=== PATIENT | female | born 1950 | race Caucasian/White ===

== ENCOUNTER → 2018-06-04 09:10 | Outpatient (CLI) | payer MEDICARE, SELFPAY ==
[2018-06-04 09:36] LABS: Add Manual Diff / Slide Review NO; Basophils Percent Auto 0.9 % (0-2); Eosinophils Percent Auto 5.4 % (2-4); Hematocrit 39.4 % (36-46); Hemoglobin 13.4 g/dL (12.0-16.0); Lymphocytes Percent Auto 21.7 % (25-40); Mean Corpuscular Hemoglobin 33.3 PG (26-34); Mean Corpuscular Volume 97.9 fL (80-100); Monocytes Percent Auto 4.4 % (3-14); Neutrophils Absolute Auto 3400 /uL (3000-5900); Neutrophils Percent Auto 67.6 % (50-75); Platelet Count 225 X10^3/uL (150-400); Red Blood Cell Count 4.02 X10^6/uL (4.0-5.2); Red Cell Distribution Width 14.7 % (11.6-14.8); White Blood Cell Count 5.1 X10^3/uL (4.5-11.0)
[2018-06-04 09:54] LABS: Erythrocyte Sedimentation Rate 8 MM/HR (0-20)
[2018-06-04 10:10] LABS: Alanine Aminotransferase 31 IU/L (9-52); Albumin 4.1 g/dL (3.5-5.0); Albumin Globulin Ratio 1.6 (1.0-2.8); Alkaline Phosphatase 109 U/L (38-126); Aspartate Aminotransferase 27 IU/L (14-36); Bilirubin Total 0.4 mg/dL (0.2-1.3); Blood Urea Nitrogen 14 mg/dL (7-17); C-Reactive Protein Quant 0.9 mg/dL (<1.0); Calcium 9.4 mg/dL (8.4-10.2); Carbon Dioxide 32 mmol/L (22-32); Chloride 103 mmol/L (98-107); Estimated Glomerular Filt Rate > 60.0 mL/min (>60); Globulin 2.6 g/dL (1.7-4.1); Glucose 93 mg/dL (80-110); HEMOLYSIS < 15 (0-50); Potassium 4.3 mmol/L (3.4-5.1); Sodium 141 mmol/L (137-145); Total Protein 6.7 g/dL (6.3-8.2)
== END ==
PROVIDERS: PCP Internal Medicine; Visit Provider Specialist/Technologist Athletic Trainer
DX: L40.50 Arthropathic psoriasis, unspecified (principal)
CPT/HCPCS: 36415; 80053; 85025; 85651; 86140

== ENCOUNTER → 2018-09-03 12:43 | Outpatient (CLI) | payer MEDICARE, SELFPAY ==
[2018-09-03 14:15] LABS: Add Manual Diff / Slide Review NO; Basophils Percent Auto 0.8 % (0-2); Eosinophils Percent Auto 2.5 % (2-4); Hematocrit 38.1 % (36-46); Hemoglobin 12.7 g/dL (12.0-16.0); Lymphocytes Percent Auto 17.6 % (25-40); Mean Corpuscular HGB Conc 33.3 % (30-36); Mean Corpuscular Hemoglobin 31.9 PG (26-34); Mean Corpuscular Volume 95.8 fL (80-100); Monocytes Percent Auto 5.8 % (3-14); Neutrophils Absolute Auto 4100 /uL (3000-5900); Neutrophils Percent Auto 73.3 % (50-75); Platelet Count 215 X10^3/uL (150-400); Red Blood Cell Count 3.98 X10^6/uL (4.0-5.2); Red Cell Distribution Width 14.2 % (11.6-14.8); White Blood Cell Count 5.6 X10^3/uL (4.5-11.0)
[2018-09-03 14:42] LABS: Alanine Aminotransferase 35 IU/L (9-52); Albumin 3.9 g/dL (3.5-5.0); Albumin Globulin Ratio 1.6 (1.0-2.8); Alkaline Phosphatase 107 U/L (38-126); Aspartate Aminotransferase 31 IU/L (14-36); BUN Creatinine Ratio 18.6 (6-22); Bilirubin Total 0.3 mg/dL (0.2-1.3); Blood Urea Nitrogen 13 mg/dL (7-17); C-Reactive Protein Quant 1.8 mg/dL (<1.0); Calcium 8.8 mg/dL (8.4-10.2); Carbon Dioxide 28 mmol/L (22-32); Chloride 104 mmol/L (98-107); Estimated Glomerular Filt Rate > 60.0 mL/min (>60); Globulin 2.5 g/dL (1.7-4.1); Glucose 116 mg/dL (80-110); HEMOLYSIS < 15 (0-50); Potassium 3.8 mmol/L (3.4-5.1); Sodium 143 mmol/L (137-145); Total Protein 6.4 g/dL (6.3-8.2)
[2018-09-03 14:54] LABS: Erythrocyte Sedimentation Rate 13 MM/HR (0-20)
== END ==
PROVIDERS: Family Provider Internal Medicine; PCP Internal Medicine; Visit Provider Specialist/Technologist Athletic Trainer
DX: L40.50 Arthropathic psoriasis, unspecified (principal)
CPT/HCPCS: 36415; 80053; 85025; 85651; 86140

== ENCOUNTER → 2018-09-27 08:21 | Outpatient (CLI) | payer MEDICARE, SELFPAY ==
--- NOTE | 2018-09-27 08:22 | DI.RAD.S_ITS ---
PROCEDURE: FL BARIUM SWALLOW INDICATIONS: Dysphagia COMPARISON: [facility], , BARIUM SWALLOW, 08/29/2008, 11:50. FINDINGS: Function: There is normal esophageal peristalsis superiorly but within the middle and distal thirds of the esophagus episodic tertiary contractions were observed. There was both spontaneous and elicited gastroesophageal reflux, moderate in overall severity. A fixed stricture was not seen. Morphologically there is a moderate-sized sliding hiatal hernia above the diaphragmatic hiatus through the course of this examination. This results in a relatively fixed narrowing below the hiatal hernia, short in length but with normal gastric folds crossing through the area of narrowing. Therefore, by appearance, this is most likely extrinsic in origin rather than evidence of a short segmental fundoplication. Morphology: Air-contrast images demonstrate normal mucosal morphology. Single contrast views show no esophageal strictures, extrinsic mass effects, or diverticula. Limited images of the stomach demonstrate normal appearance. IMPRESSION: There is a moderate degree of both spontaneous and elicited gastroesophageal reflux associated with extension of this reflux to the level of the medial clavicular heads at times. The reflux is associated with episodic tertiary contractions within the middle and distal thirds of the esophagus. A fixed stricture is not present. Note is made of a short segment of the gastric cardia below the dominant portion of sliding hiatal hernia that is relatively narrow in its caliber but associated with normal gastric folds crossing through that area. This appearance as discussed above is considered a narrowing due to the diaphragmatic hiatus rather than evidence of an intact fundoplication. Dictated by: August Gage M.D. on 09/27/2018 at 10:40 Approved by: August Gage M.D. on 09/27/2018 at 10:45
== END ==
PROVIDERS: Family Provider Internal Medicine; PCP Internal Medicine; Visit Provider Surgery
DX: K21.9 Gastro-esophageal reflux disease without esophagitis (principal); R13.10 Dysphagia, unspecified; K44.9 Diaphragmatic hernia without obstruction or gangrene
CPT/HCPCS: 74220

== ENCOUNTER → 2018-11-19 08:47 | Outpatient (CLI) | payer MEDICARE, SELFPAY | PROVIDERS: Family Provider Internal Medicine; PCP Internal Medicine; Visit Provider Internal Medicine Critical Care Medicine | DX: R05 Cough (principal) | CPT/HCPCS: 87116 ==

== ENCOUNTER → 2018-11-20 09:00 | Outpatient (CLI) | payer MEDICARE, SELFPAY | PROVIDERS: Family Provider Internal Medicine; PCP Internal Medicine; Visit Provider Internal Medicine Critical Care Medicine | DX: R05 Cough (principal) | CPT/HCPCS: 87116 ==

== ENCOUNTER → 2018-11-21 10:06 | Outpatient (CLI) | payer MEDICARE, SELFPAY | PROVIDERS: Family Provider Internal Medicine; PCP Internal Medicine; Visit Provider Internal Medicine Critical Care Medicine | DX: R05 Cough (principal) | CPT/HCPCS: 87116 ==

== ENCOUNTER 2018-11-27 13:32 | Day surgery (SDC) | payer MEDICARE, SELFPAY ==
[2018-11-27] VITALS (7 sets, daily range): BP systolic 123–150; BP diastolic 61–86; PULSE 57–69; RESP 14–19; TEMP 36.6–36.8; O2SAT 93–97; BMI 28.8
--- NOTE | 2018-11-27 | PATH_ITS ---
[facility] Accession Number: [id number] . 01 Material submitted: . PART A: DUODENUM BIOPSY PART B: ANTRUM BIOPSY PART C: GE JUNCTION BIOPSY . 02 Diagnosis: A. Duodenum, Biopsy: Duodenal mucosa with no diagnostic abnormality. Negative for active inflammation, features of sprue, dysplasia and malignancy. . B. Stomach, Antrum, Biopsy: Antral mucosa with no diagnostic abnormality. No evidence of Helicobacter on H/E stain. Negative for intestinal metaplasia. Negative for dysplasia and malignancy. . C. Gastroesophgeal Junction, Biopsy: Squamocolumnar junctional mucosa with no diagnsotic abnormality. Negative for intestinal metaplasia. Negative for dysplasia and malignancy. [facility]/11/29/2018 . 02 Electronically signed: . Mari Velazquez MD, Pathologist NPI- [id number] . 01 Gross description: . Part A: DUODENUM BIOPSY: Received in formalin is 1 fragment(s) of interiano, soft tissue measuring 0.3 x 0.3 x 0.3 cm submitted entirely in 1 cassette(s) Part B: ANTRUM BIOPSY: Received in formalin is 1 fragment(s) of interiano, soft tissue measuring 0.4 x 0.2 x 0.2 cm submitted entirely in 1 cassette(s) Part C: GE JUNCTION BIOPSY: Received in formalin are multiple fragment(s) of interiano, soft tissue measuring 0.5 x 0.5 x 0.2 cm in aggregate submitted entirely in 1 cassette(s) /CKI /CKI . 02 Pathologist provided ICD-10: R10.9 . 02 CPT . 520674, 215013, 409733 Performed at: [address], [place], [place] [id number] MD Moncho Alba MD Phone: [phone] Performed at: 02 [facility] [address] [place] [address] [place], [place] [id number] MD Mari Velazquez MD Phone: [phone]
[2018-11-27] MEDS: SODIUM CHLORIDE 0.9% 1,000 ML 150 ML IV (14:30)
[2018-11-27] MEDS: TETRACAINE/BENZOCAINE/BUTAMBEN (CETACAINE) BOTTLE 1 SPRAY TOP (15:38)
[2018-11-27] MEDS: LIDOCAINE 4% SOLN 50 ML 20 ML TOP (15:39)
[2018-11-27] MEDS: fentaNYL 250 MCG/5 ML INJ IV (15:41)
[2018-11-27] MEDS: MIDAZOLAM 5 MG/5 ML VIAL IV (15:41)
--- NOTE | 2018-11-27 15:54 | PM.OP.1 ---
Operative Date/Time/Diagnoses Date of procedure: 11/27/18 Time of procedure: 15:54 Pre-op diagnosis: Gastroesophageal reflux disease Personal history of Sim fundoplication Post-op diagnosis: same Procedure & Clinicians Procedure: Esophagogastroduodenoscopy with cold forceps biopsies Same procedure as scheduled: Yes Indications: Gastroesophageal reflux disease and voice changes History of Sim fundoplication Surgeon: Chrystal Sterling Click Yes if Unassisted: Yes Anesthesia Type: Sedation (Versed 8 mg; fentanyl 250 mcg) Operative Notes Findings: 1. Normal appearing duodenum 2. Antral gastritis with a 1 cm healing ulcer in the pyloric channel. No stigmata of recent bleeding 3. Normal appearing fundus 4. Hiatus at 40 cm from the incisors 5. Mucosal junction at 35 cm from the incisors 6. The appearance of the esophagus is notable for a lack of twisting that is usually observed internally after a Sim fundoplication. 7. Erythema of the true vocal cords is observed. The cords are seen to move appropriately and equally. Specimen(s): other (All cold forceps biopsies- 1. Duodenum, 2. Antrum, 3. GE junction) Estimated Blood Loss (mL): 2 Procedure in detail: After obtaining informed consent, the patient was brought to the GI suite and placed in the left lateral decubitus position on the examination table. After placement of appropriate monitors, the patient was given incremental doses of Versed and Fentanyl until an appropriate level of sedation was achieved. A time out was held per SCOAP protocol. A bite block was gently placed between the patient's teeth. The endoscope was lubricated and then passed into the patient's posterior oropharynx. The esophagus was cannulated under direct vision and the scope was passed to the second portion of the duodenum without difficulty. The scope was then withdrawn with careful examination of all areas of the upper GI tract and mucosa. In the stomach, the instrument was retroflexed and the GE junction examined. The scope was straightened and the procedure continued with examination of the remainder of the upper GI tract. Findings are noted above. Air was aspirated from the stomach and the endoscope gently removed from the esophagus. The patient was allowed to awaken from sedation without difficulty and taken to the post-anesthesia care unit in good condition. Total sedation time was 16 min Complications: none Condition: stable Disposition: PACU Plan for aftercare: 1. Discharge to home 2. Await pathology results and further recommendations.
--- NOTE | 2018-12-19 13:10 | PM.HP.1 ---
History of Present Illness Date Patient Seen: 11/27/18 Time Patient Seen: 13:10 Chief complaint: egd [id number] Narrative: Very pleasant 68-year-old lady who is known to me from prior visit in September. She is here today for an EGD. She has a history of having had reflux and reflux surgery in the form a Sim fundoplication many years ago. Additionally she deals with chronic cough and is having some difficulty swallowing recently. She is not having any unexplained weight loss. Patient History Medical History GERD (gastroesophageal reflux disease) (Chronic ~2002) Other and unspecified hyperlipidemia (Chronic) Essential hypertension (Chronic 01/24/18) Asthma (Chronic ~2009) Anxiety (Chronic ~1989) Depression (Chronic ~1979) Post traumatic stress disorder (PTSD) (Chronic ~2011) Hay fever (Chronic ~1979) Chronic cough (Chronic ~1984) Osteoarthritis (Chronic ~2012) H/O migraine (Chronic ~1979) Psoriatic arthritis (Chronic) Allergic rhinitis, unspecified (Chronic) Fibroids (Chronic ~2000) Foot pain (Chronic ~2002) Herpes (Chronic ~1979) Knee pain (Chronic) Recurrent sinusitis (Chronic ~1979) Shoulder pain (Chronic ~1999) Anemia (Resolved ~2000) Chicken pox (Resolved) De Quervain's disease (radial styloid tenosynovitis) (Resolved) Fracture of ulna, right, closed (Resolved) GI bleeding (Resolved) Headache (Resolved ~1969) Heavy menstrual period (Resolved) Measles (Resolved) Mumps (Resolved) Pneumonia (Resolved ~2011) Surgical History Anesthesia (Resolved) History of Sim fundoplication (Resolved ~2003) Long's neuroma (Resolved ~2012) Status post arthroscopy (Resolved ~2009) Status post functional endoscopic sinus surgery (Resolved) Status post rotator cuff repair (Resolved ~05/2000) Surgical procedure planned (Resolved ~03/2000) Family History Brother Age: 70 Heart disease Mental health problem Alcoholic Brother Age: 66 Diabetes mellitus Heart disease Hypertension Father Heart disease Mother Diabetes mellitus Hypertension Mental health problem Grandmother Mental health problem Bipolar 1 disorder Alcoholic Sister Fibromyalgia Grandfather No problems noted. Grandmother No problems noted. Sister No problems noted. Sister Fibromyalgia Social History marital status: number of children: 2 household members: spouse lives independently: Yes caregiver/support person: No housing: house pets and animals: Yes education level: college travel history: other Smoking Status: Never smoker Tobacco: How many years used: 0 second hand exposure: Yes (Early in life) alcohol intake: current substance use type: tranquilizers, sedatives, opiates and other Family & Social History Family History Brother Age: 70 Heart disease Mental health problem Alcoholic Brother Age: 66 Diabetes mellitus Heart disease Hypertension Father Heart disease Mother Diabetes mellitus Hypertension Mental health problem Grandmother Mental health problem Bipolar 1 disorder Alcoholic Sister Fibromyalgia Grandfather No problems noted. Grandmother No problems noted. Sister No problems noted. Sister Fibromyalgia Social History: household members spouse lives independently Yes caregiver/support person No Tobacco & Substance use: Smoking Status Never smoker alcohol intake current Meds Home Medications Medication Instructions Recorded Confirmed Type loratadine [Claritin] See Rx Instructions .ROUTE 03/22/17 12/11/18 History .COMPLEX #0 halobetasol propionate 1 elizabet TP DAILY #0 11/29/17 12/11/18 History bupropion HCl 75 mg PO BID #180 tab 01/24/18 12/11/18 Rx ascorbic acid (vitamin C) 500 mg See Rx Instructions .ROUTE 04/26/18 12/11/18 History capsule .COMPLEX cap gabapentin 300 mg capsule 300 mg PO BEDTIME #0 cap 04/26/18 12/11/18 History hydroxyzine HCl 25 mg tablet 25 mg PO ONCE tab 04/26/18 12/11/18 History methotrexate sodium 2.5 mg tablet 20 mg PO QWEEK tab 04/26/18 12/11/18 History multivitamin tablet 1 tab PO DAILY 04/26/18 12/11/18 History rizatriptan 10 mg tablet 10 mg PO ONCE PRN #12 tab 04/26/18 12/11/18 Rx alprazolam 0.25 mg tablet 0.25 mg PO ONCE PRN #30 tab 09/04/18 12/11/18 Rx meloxicam 15 mg tablet 15 mg PO DAILY 09/04/18 12/11/18 History sucralfate 1 gram tablet 1 gram PO QACHS #120 tab 09/04/18 12/11/18 Rx omeprazole 40 mg capsule,delayed 40 mg PO BID #180 ecc 10/19/18 12/11/18 Rx release diltiazem CD 240 mg 240 mg PO QDAY #30 cap 11/14/18 12/11/18 Rx capsule,extended release 24 hr ogbgxgd-jhicdjgben-QRV-caffeine 30 1 cap PO Q6HP PRN #60 cap 11/19/18 12/11/18 Rx mg-50 mg-325 mg-40 mg capsule albuterol sulfate [Ventolin HFA] See Rx Instructions .ROUTE 11/27/18 12/11/18 History .COMPLEX PRN levocetirizine [Xyzal] 5 mg PO DAILY 11/27/18 12/11/18 History ranitidine 150 mg tablet 150 mg PO BID 30 Days #60 tab 12/03/18 12/11/18 History amoxicillin 500 mg-potassium 1 tab PO BID #28 tab 12/11/18 Rx clavulanate 125 mg tablet Allergies Allergy/AdvReac Type Severity Reaction Status Date / Time shellfish derived Allergy Intermediate EATING Verified 12/11/18 11:11 LARGE AMOUNTS, ITCHY Sulfa (Sulfonamide Allergy Mild HIVES/FEVER Verified 12/11/18 11:11 Antibiotics) trimethoprim Allergy Mild ANYTHING Verified 12/11/18 11:11 WITH SULFA UNSURE WITH THE INGREDIENTS sulfamethoxazole Allergy Verified 12/11/18 11:11 [From ] zolpidem [ZOLPIDEM] AdvReac Intermediate sleep Verified 12/11/18 11:11 walking Review of Systems Review of Systems All systems reviewed & are unremarkable except as noted in HPI and below Exam Vital Signs (past 8 hours): Oxygen Delivery Method Room Air Oxygen Flow Rate 3 Narrative Exam Narrative: Pleasant lady in no obvious distress HEENT: Normocephalic and atraumatic, pupils equal round reactive to light accommodation with anicteric sclera Lungs: Clear bilaterally Heart: Regular rate and rhythm without murmur rub or gallop Abdomen: Soft, nontender, active bowel sounds Extremities: Warm and well perfused without edema Assessment & Plan Assessment Narrative: Pleasant lady here for an EGD for surveillance distal esophagitis in the presence of longstanding gastroesophageal reflux disease and a chronic cough. We discussed the risks and benefits of the procedure and the patient expressed a desire to complete it today.
== END 2018-11-27 16:49 | disposition home or self-care (01) ==
PROVIDERS: Family Provider Internal Medicine; PCP Internal Medicine; Visit Provider Surgery
PROC: 0DJ08ZZ Inspection of Upper Intestinal Tract, Via Natural or Artificial Opening Endoscopic (ICD-10-PCS; CPT 43235; principal; 2018-11-27 15:00)
DX: K29.70 Gastritis, unspecified, without bleeding (principal); K21.9 Gastro-esophageal reflux disease without esophagitis; Z98.890 Other specified postprocedural states; E78.5 Hyperlipidemia, unspecified; I10 Essential (primary) hypertension; J45.909 Unspecified asthma, uncomplicated; F41.9 Anxiety disorder, unspecified
CPT/HCPCS: 43239; 88305; 99152; J2250; J3010

== ENCOUNTER → 2018-12-03 09:05 | Outpatient (CLI) | payer MEDICARE, SELFPAY ==
[2018-12-03 10:39] LABS: Add Manual Diff / Slide Review NO; Basophils Absolute Auto 0 /uL (0-100); Basophils Percent Auto 1.1 % (0-2); Eosinophils Absolute Auto 300 /uL (0-450); Eosinophils Percent Auto 6.9 % (2-4); Hematocrit 41.6 % (36-46); Hemoglobin 13.8 g/dL (12.0-16.0); Lymphocytes Absolute Auto 1000 /uL (1100-4500); Lymphocytes Percent Auto 24.8 % (25-40); Mean Corpuscular HGB Conc 33.1 % (30-36); Mean Corpuscular Hemoglobin 31.5 PG (26-34); Mean Corpuscular Volume 95.3 fL (80-100); Monocytes Absolute Auto 300 /uL (0-900); Monocytes Percent Auto 6.3 % (3-14); Neutrophils Absolute Auto 2400 /uL (1500-7000); Neutrophils Percent Auto 60.9 % (50-75); Platelet Count 293 X10^3/uL (150-400); Red Blood Cell Count 4.37 X10^6/uL (4.0-5.2); Red Cell Distribution Width 15.2 % (11.6-14.8)
[2018-12-03 11:15] LABS: Alanine Aminotransferase 36 IU/L (9-52); Albumin 4.2 g/dL (3.5-5.0); Albumin Globulin Ratio 1.7 (1.0-2.8); Alkaline Phosphatase 107 U/L (38-126); Aspartate Aminotransferase 33 IU/L (14-36); BUN Creatinine Ratio 18.8 (6-22); Bilirubin Total 0.3 mg/dL (0.2-1.3); Blood Urea Nitrogen 15 mg/dL (7-17); C-Reactive Protein Quant 1.2 mg/dL (<1.0); Calcium 9.7 mg/dL (8.4-10.2); Carbon Dioxide 28 mmol/L (22-32); Chloride 104 mmol/L (98-107); Estimated Glomerular Filt Rate > 60.0 mL/min (>60); Globulin 2.5 g/dL (1.7-4.1); Glucose 95 mg/dL (80-110); HEMOLYSIS < 15 (0-50); Potassium 4.4 mmol/L (3.4-5.1); Sodium 139 mmol/L (137-145); Total Protein 6.7 g/dL (6.3-8.2)
[2018-12-03 11:21] LABS: Erythrocyte Sedimentation Rate 7 MM/HR (0-20)
== END ==
PROVIDERS: Family Provider Internal Medicine; PCP Internal Medicine; Visit Provider Specialist/Technologist Athletic Trainer
DX: L40.50 Arthropathic psoriasis, unspecified (principal)
CPT/HCPCS: 36415; 80053; 85025; 85651; 86140

== ENCOUNTER → 2019-01-28 09:28 | Outpatient (CLI) | payer MEDICARE, SELFPAY ==
[2019-01-28 16:06] LABS: Adenovirus F 40/41 Not Detected (Not Detect); Astrovirus Not Detected (Not Detect); Campylobacter Not Detected (Not Detect); Clostridium difficile toxin AB Not Detected (Not Detect); Cryptosporidium Not Detected (Not Detect); Cyclospora cayetanensis Not Detected (Not Detect); Entamoeba histolytica Not Detected (Not Detect); Enteroaggregative E.coli Not Detected (Not Detect); Enteropathogenic E.coli Not Detected (Not Detect); Enterotoxigenic E.coli It/st Not Detected (Not Detect); Giardia lamblia Not Detected (Not Detect); Norovirus GI/GII Not Detected (Not Detect); Plesiomonsa shigelloides Not Detected (Not Detect); Rotavirus A Not Detected (Not Detect); Salmonella Not Detected (Not Detect); Sapovirus Not Detected (Not Detect); Shiga-like toxin-prod E.coli Not Detected (Not Detect); Shigella/Enteroinvasive E.coli Not Detected (Not Detect); Vibrio Not Detected (Not Detect); Vibrio cholerae Not Detected (Not Detect); Yersinia enterocolitica Not Detected (Not Detect)
== END ==
PROVIDERS: Family Provider Internal Medicine; PCP Internal Medicine; Visit Provider Internal Medicine
DX: R19.7 Diarrhea, unspecified (principal)
CPT/HCPCS: 87507

== ENCOUNTER → 2019-12-16 09:04 | Outpatient (CLI) | payer MEDICARE, SELFPAY ==
--- NOTE | 2019-12-16 09:07 | DI.MG.S_ITS ---
BILATERAL DIGITAL DIAGNOSTIC MAMMOGRAM 3D/2D: 12/16/2019 CLINICAL: Right breast pain. Comparison is made to exams dated: 09/26/2016 mammogram, 09/25/2015 mammogram, and 12/06/2013 mammogram - [facility]. The tissue of both breasts is heterogeneously dense. This may lower the sensitivity of mammography. No significant masses, calcifications, or other findings are seen in either breast. IMPRESSION: INCOMPLETE: NEEDS ADDITIONAL IMAGING EVALUATION There is no abnormality seen in the right breast to correspond with the pain at 9 o'clock, however, ultrasound is recommended. This exam was interpreted at Station ID: [id number]. NOTE: For mammograms, a report in lay terms will be sent to the patient. Approximately 15% of breast malignancies will not be visualized mammographically. In the management of a palpable breast mass, a negative mammogram must not discourage biopsy of a clinically suspicious lesion. Electronically Signed By: Moncho sebastian/lynda:12/16/2019 09:53:36 ACR BI-RADS Category 0: Incomplete [id number]
--- NOTE | 2019-12-16 09:07 | DI.US.S_ITS ---
LIMITED ULTRASOUND OF RIGHT BREAST: 12/16/2019 CLINICAL: Focal right breast pain. Comparison is made to exams dated: 12/16/2019 mammogram, 09/26/2016 mammogram, 09/25/2015 mammogram, 12/06/2013 mammogram, 03/29/2012 mammogram, and 03/24/2011 mammogram - [facility]. Real-time ultrasound of the right breast 8-9 o'clock region was performed on the area of interest. No discrete cystic or solid mass lesion identified in the area of pain. IMPRESSION: NEGATIVE There is no sonographic evidence of malignancy. There are no abnormalities seen in the right breast to correspond with the pain at 8 and 9 o'clock, however, clinical followup is recommended. A 1 year screening mammogram is recommended. This exam was interpreted at Station ID: [id number]. Electronically Signed By: Moncho Buchanan M.D. ddefrem/:12/16/2019 10:13:30 letter sent: Clinical Evaluation Ultrasound BI-RADS: 1 Negative
== END ==
PROVIDERS: Family Provider Internal Medicine; PCP Internal Medicine; Referring Provider Internal Medicine; Visit Provider Internal Medicine
DX: R92.8 Other abnormal and inconclusive findings on diagnostic imaging of breast (principal); N64.4 Mastodynia
CPT/HCPCS: 76642; 77066; G0279

== ENCOUNTER → 2020-04-02 09:01 | Outpatient (CLI) | payer MEDICARE, SELFPAY ==
[2020-04-02 10:19] LABS: Add Manual Diff / Slide Review NO; Basophils Absolute Auto 0 /uL (0-100); Basophils Percent Auto 0.7 % (0-2); Eosinophils Absolute Auto 200 /uL (0-450); Eosinophils Percent Auto 4.1 % (2-4); Hematocrit 38.8 % (36-46); Hemoglobin 13.3 g/dL (12.0-16.0); Lymphocytes Absolute Auto 1000 /uL (1100-4500); Lymphocytes Percent Auto 21.7 % (25-40); Mean Corpuscular HGB Conc 34.3 % (30-36); Mean Corpuscular Hemoglobin 33.8 PG (26-34); Mean Corpuscular Volume 98.4 fL (80-100); Monocytes Absolute Auto 400 /uL (0-900); Neutrophils Absolute Auto 3000 /uL (1500-7000); Neutrophils Percent Auto 64.5 % (50-75); Platelet Count 199 X10^3/uL (150-400); Red Blood Cell Count 3.95 X10^6/uL (4.0-5.2); Red Cell Distribution Width 15.9 % (11.6-14.8); White Blood Cell Count 4.7 X10^3/uL (4.5-11.0)
[2020-04-02 11:13] LABS: Alanine Aminotransferase 68 IU/L (<35); Albumin 3.8 g/dL (3.5-5.0); Albumin Globulin Ratio 1.5 (1.0-2.8); Alkaline Phosphatase 108 U/L (38-126); Aspartate Aminotransferase 49 IU/L (14-36); BUN Creatinine Ratio 28.6 (6-22); Bilirubin Total 0.3 mg/dL (0.2-1.3); Blood Urea Nitrogen 20 mg/dL (7-17); Calcium 9.4 mg/dL (8.4-10.2); Carbon Dioxide 30 mmol/L (22-32); Chloride 106 mmol/L (98-107); Estimated Glomerular Filt Rate > 60.0 mL/min (>60); Globulin 2.6 g/dL (1.7-4.1); Glucose 90 mg/dL (80-110); HEMOLYSIS < 15 (0-50); Potassium 4.4 mmol/L (3.4-5.1); Sodium 140 mmol/L (137-145); Total Protein 6.4 g/dL (6.3-8.2)
[2020-04-02 11:21] LABS: Erythrocyte Sedimentation Rate 7 MM/HR (0-20)
== END ==
PROVIDERS: Family Provider Internal Medicine; PCP Internal Medicine; Referring Provider Physician Assistant Medical; Visit Provider Physician Assistant Medical
DX: L40.50 Arthropathic psoriasis, unspecified (principal)
CPT/HCPCS: 36415; 80053; 85025; 85651; 86140

== ENCOUNTER → 2020-05-17 10:53 | Outpatient (CLI) | payer MEDICARE, SELFPAY | PROVIDERS: Family Provider Internal Medicine; PCP Internal Medicine; Visit Provider Nurse Practitioner | DX: R52 Pain, unspecified (principal) | CPT/HCPCS: 87070; 87205 ==

== ENCOUNTER → 2020-08-24 15:21 | Outpatient (CLI) | payer MEDICARE, SELFPAY ==
[2020-08-24 15:46] LABS: Add Manual Diff / Slide Review NO; Basophils Absolute Auto 0 /uL (0-100); Basophils Percent Auto 0.6 % (0-2); Eosinophils Absolute Auto 100 /uL (0-450); Eosinophils Percent Auto 3.2 % (2-4); Hematocrit 40.7 % (36-46); Hemoglobin 13.5 g/dL (12.0-16.0); Lymphocytes Absolute Auto 800 /uL (1100-4500); Lymphocytes Percent Auto 18.3 % (25-40); Mean Corpuscular HGB Conc 33.2 % (30-36); Mean Corpuscular Hemoglobin 33.5 PG (26-34); Mean Corpuscular Volume 100.7 fL (80-100); Monocytes Absolute Auto 400 /uL (0-900); Monocytes Percent Auto 9.8 % (3-14); Neutrophils Absolute Auto 2900 /uL (1500-7000); Neutrophils Percent Auto 68.1 % (50-75); Platelet Count 213 X10^3/uL (150-400); Red Blood Cell Count 4.04 X10^6/uL (4.0-5.2); Red Cell Distribution Width 14.6 % (11.6-14.8); White Blood Cell Count 4.2 X10^3/uL (4.5-11.0)
[2020-08-24 15:58] LABS: Alanine Aminotransferase 35 IU/L (<35); Albumin Globulin Ratio 1.4 (1.0-2.8); Alkaline Phosphatase 109 U/L (38-126); Aspartate Aminotransferase 43 IU/L (14-36); Bilirubin Total 0.5 mg/dL (0.2-1.3); Blood Urea Nitrogen 12 mg/dL (7-17); Calcium 9.4 mg/dL (8.4-10.2); Carbon Dioxide 31 mmol/L (22-32); Chloride 103 mmol/L (98-107); Estimated Glomerular Filt Rate > 60.0 mL/min (>60); Globulin 2.8 g/dL (1.7-4.1); Glucose 89 mg/dL (80-110); HEMOLYSIS < 15 (0-50); Potassium 4.4 mmol/L (3.4-5.1); Sodium 137 mmol/L (137-145); Total Protein 6.8 g/dL (6.3-8.2)
[2020-08-24 16:15] LABS: Free T4, Direct Thyroxine 1.04 ng/dL (0.78-2.19)
[2020-08-24 16:29] LABS: Thyroid Stimulating Hormone 1.92 uIU/mL (0.47-4.68)
== END ==
PROVIDERS: Family Provider Internal Medicine; PCP Internal Medicine; Referring Provider Internal Medicine; Visit Provider Internal Medicine
DX: I10 Essential (primary) hypertension (principal); L65.9 Nonscarring hair loss, unspecified
CPT/HCPCS: 36415; 80053; 84439; 84443; 85025

== ENCOUNTER → 2020-12-17 16:03 | Outpatient (CLI) | payer MEDICARE, SELFPAY ==
--- NOTE | 2020-12-17 | DI.MG.S_ITS ---
BILATERAL DIGITAL SCREENING MAMMOGRAM 3D/2D WITH CAD: 12/17/2020 CLINICAL: Routine screening. Comparison is made to exams dated: 12/16/2019 mammogram, 09/26/2016 mammogram, and 09/25/2015 mammogram - [facility]. The tissue of both breasts is heterogeneously dense. This may lower the sensitivity of mammography. Current study was also evaluated with a Computer Aided Detection (CAD) system. There is a biopsy clip in the left breast. No significant masses, calcifications, or other findings are seen in either breast. There has been no significant interval change. IMPRESSION: NEGATIVE There is no mammographic evidence of malignancy. A 1 year screening mammogram is recommended. This exam was interpreted at Station ID: [id number]. NOTE: For mammograms, a report in lay terms will be sent to the patient. Approximately 15% of breast malignancies will not be visualized mammographically. In the management of a palpable breast mass, a negative mammogram must not discourage biopsy of a clinically suspicious lesion. Electronically Signed By: Dontrell teresa/lynda:12/17/2020 16:30:15 letter sent: Normal Exam ACR BI-RADS Category 1: Negative [id number]
== END ==
PROVIDERS: Family Provider Internal Medicine; PCP Internal Medicine; Referring Provider Internal Medicine; Visit Provider Internal Medicine
DX: Z12.31 Encounter for screening mammogram for malignant neoplasm of breast (principal)
CPT/HCPCS: 77063; 77067

== ENCOUNTER → 2021-01-29 12:12 | Outpatient (CLI) | payer MEDICARE, SELFPAY ==
[2021-01-29 13:41] LABS: Add Manual Diff / Slide Review NO; Basophils Absolute Auto 0 /uL (0-100); Basophils Percent Auto 0.8 % (0-2); Eosinophils Absolute Auto 200 /uL (0-450); Eosinophils Percent Auto 3.2 % (2-4); Hematocrit 40.1 % (36-46); Hemoglobin 13.6 g/dL (12.0-16.0); Lymphocytes Absolute Auto 1000 /uL (1100-4500); Lymphocytes Percent Auto 19.1 % (25-40); Mean Corpuscular HGB Conc 33.8 % (30-36); Mean Corpuscular Hemoglobin 33.5 PG (26-34); Mean Corpuscular Volume 99.2 fL (80-100); Monocytes Absolute Auto 500 /uL (0-900); Monocytes Percent Auto 9.3 % (3-14); Neutrophils Absolute Auto 3700 /uL (1500-7000); Neutrophils Percent Auto 67.6 % (50-75); Platelet Count 214 X10^3/uL (150-400); Red Blood Cell Count 4.05 X10^6/uL (4.0-5.2); Red Cell Distribution Width 14.4 % (11.6-14.8); White Blood Cell Count 5.5 X10^3/uL (4.5-11.0)
[2021-01-29 13:58] LABS: Alanine Aminotransferase 19 IU/L (<35); Albumin 3.9 g/dL (3.5-5.0); Albumin Globulin Ratio 1.7 (1.0-2.8); Alkaline Phosphatase 101 U/L (38-126); Amylase 67 U/L (30-110); Aspartate Aminotransferase 30 IU/L (14-36); BUN Creatinine Ratio 23.9 (6-22); Bilirubin Total 0.2 mg/dL (0.2-1.3); Blood Urea Nitrogen 16 mg/dL (7-17); Calcium 9.4 mg/dL (8.4-10.2); Carbon Dioxide 27 mmol/L (22-32); Chloride 102 mmol/L (98-107); Estimated Glomerular Filt Rate > 60.0 mL/min (>60); Globulin 2.3 g/dL (1.7-4.1); Glucose 99 mg/dL (80-110); HEMOLYSIS < 15 (0-50); Lipase 60 U/L (23-300); Potassium 4.1 mmol/L (3.4-5.1); Sodium 136 mmol/L (137-145); Total Protein 6.2 g/dL (6.3-8.2)
== END ==
PROVIDERS: Family Provider Internal Medicine; PCP Internal Medicine; Referring Provider Internal Medicine; Visit Provider Internal Medicine
DX: G25.81 Restless legs syndrome (principal); K21.9 Gastro-esophageal reflux disease without esophagitis; R10.13 Epigastric pain
CPT/HCPCS: 36415; 80053; 82150; 83690; 85025

== ENCOUNTER → 2021-07-19 10:23 | Outpatient (CLI) | payer MEDICARE, SELFPAY ==
[2021-07-19 12:34] LABS: COVID19 -Nasal RAPID Negative (Negative)
== END ==
PROVIDERS: Family Provider Internal Medicine; PCP Internal Medicine; Visit Provider Nurse Practitioner Family
DX: Z01.812 Encounter for preprocedural laboratory examination (principal); Z20.822 Contact with and (suspected) exposure to COVID-19
CPT/HCPCS: 87635; C9803

== ENCOUNTER → 2021-09-28 14:50 | Outpatient (CLI) | payer MEDICARE, SELFPAY ==
[2021-09-28 15:25] LABS: Add Manual Diff / Slide Review NO; Basophils Absolute Auto 0 /uL (0-100); Basophils Percent Auto 0.5 % (0-2); Eosinophils Absolute Auto 200 /uL (0-450); Eosinophils Percent Auto 3.4 % (2-4); Hematocrit 40.5 % (36-46); Hemoglobin 13.5 g/dL (12.0-16.0); Lymphocytes Absolute Auto 1000 /uL (1100-4500); Lymphocytes Percent Auto 18.5 % (25-40); Mean Corpuscular HGB Conc 33.3 % (30-36); Mean Corpuscular Hemoglobin 32.2 PG (26-34); Mean Corpuscular Volume 96.7 fL (80-100); Monocytes Absolute Auto 500 /uL (0-900); Monocytes Percent Auto 8.3 % (3-14); Neutrophils Absolute Auto 3900 /uL (1500-7000); Neutrophils Percent Auto 69.3 % (50-75); Platelet Count 228 X10^3/uL (150-400); Red Blood Cell Count 4.19 X10^6/uL (4.0-5.2); White Blood Cell Count 5.7 X10^3/uL (4.5-11.0)
[2021-09-28 16:35] LABS: Alanine Aminotransferase 25 IU/L (<35); Albumin 4.2 g/dL (3.5-5.0); Albumin Globulin Ratio 1.8 (1.0-2.8); Alkaline Phosphatase 98 U/L (38-126); Aspartate Aminotransferase 34 IU/L (14-36); BUN Creatinine Ratio 20.6 (6-22); Bilirubin Total 0.4 mg/dL (0.2-1.3); Blood Urea Nitrogen 14 mg/dL (7-17); Calcium 9.6 mg/dL (8.4-10.2); Carbon Dioxide 31 mmol/L (22-32); Chloride 102 mmol/L (98-107); Estimated Glomerular Filt Rate > 60.0 mL/min (>60); Globulin 2.4 g/dL (1.7-4.1); Glucose 88 mg/dL (80-110); HEMOLYSIS < 15 (0-50); Magnesium 2.1 mg/dL (1.6-2.3); Potassium 4.5 mmol/L (3.4-5.1); Sodium 138 mmol/L (137-145); Total Protein 6.6 g/dL (6.3-8.2)
== END ==
PROVIDERS: Family Provider Internal Medicine; PCP Internal Medicine; Referring Provider Internal Medicine; Visit Provider Internal Medicine
DX: I10 Essential (primary) hypertension (principal); E78.5 Hyperlipidemia, unspecified
CPT/HCPCS: 36415; 80053; 83735; 85025

== ENCOUNTER → 2021-10-04 11:30 | Outpatient (CLI) | payer MEDICARE, SELFPAY ==
--- NOTE | 2021-10-20 09:12 | P.HOLT.S_ITS ---
Specialty Manufacturing Supervisor Report Referral & Results Date Patient Seen: 10/04/21 Requesting provider: Junior Khan Indication: Syncope Duration of monitoring (days): 7 Diary information: Therefore patient triggered events and 1 patient diary entry Patient triggered events were associated variably with (within 45 seconds) sinus rhythm, PACs, and brief SVT Patient diary events were associated variably with (within 45 seconds) sinus rhythm and PACs Data: Minimum heart rate identified was 39 beats per minute at 05:56 on 10/09/2021 Maximum sinus heart rate was 112 beats per minute at 17:03 on 10/09/2021 Maximum overall heart rate was 182 beats per minute at 15:00 on 10/06/2021 during a 4 beat run of SVT Less than 1% of identified beats were ventricular or supraventricular ectopic in origin, which would classify them as rare. There 160 runs of SVT the fastest being the 4 beat run noted above the longest lasting 13.1 seconds at a rate of 105 beats per minute. Some of these runs of SVT may well have been more atrial tachycardia than true SVT Impression: Essentially normal 7 day monitoring specialist showing very brief very rare runs of SVT as only notable dysrhythmia
== END ==
PROVIDERS: Family Provider Internal Medicine; PCP Internal Medicine; Referring Provider Internal Medicine; Visit Provider Internal Medicine
DX: R55 Syncope and collapse (principal); R00.0 Tachycardia, unspecified
CPT/HCPCS: 93242; 93244

== ENCOUNTER → 2022-04-28 11:12 | Outpatient (CLI) | payer MEDICARE, SELFPAY ==
--- NOTE | 2022-04-28 | DI.MG.S_ITS ---
BILATERAL DIGITAL SCREENING MAMMOGRAM 3D/2D WITH CAD: 04/28/2022 CLINICAL: Routine screening. Comparison is made to exams dated: 12/17/2020 mammogram, 12/16/2019 mammogram, 09/26/2016 mammogram, and 09/25/2015 mammogram - [facility]. The tissue of both breasts is heterogeneously dense. This may lower the sensitivity of mammography. Current study was also evaluated with a Computer Aided Detection (CAD) system. There are benign vascular calcifications in both breasts. There also is a biopsy clip in the left breast. No significant masses, calcifications, or other findings are seen in either breast. There has been no significant interval change. IMPRESSION: BENIGN There is no mammographic evidence of malignancy. A 1 year screening mammogram is recommended. This exam was interpreted at Station ID: [id number]. NOTE: For mammograms, a report in lay terms will be sent to the patient. Approximately 15% of breast malignancies will not be visualized mammographically. In the management of a palpable breast mass, a negative mammogram must not discourage biopsy of a clinically suspicious lesion. Electronically Signed By: Parviz vinson/lynda:04/28/2022 12:38:36 letter sent: Normal Exam ACR BI-RADS Category 2: Benign Finding(s) 3342F
== END ==
PROVIDERS: Family Provider Internal Medicine; PCP Internal Medicine; Referring Provider Internal Medicine; Visit Provider Internal Medicine
DX: Z12.31 Encounter for screening mammogram for malignant neoplasm of breast (principal)
CPT/HCPCS: 77063; 77067

== ENCOUNTER → 2022-05-09 09:19 | Outpatient (CLI) | payer MEDICARE, SELFPAY ==
[2022-05-09 10:26] LABS: Add Manual Diff / Slide Review NO; Basophils Absolute Auto 0 /uL (0-100); Basophils Percent Auto 0.9 % (0-2); Eosinophils Absolute Auto 200 /uL (0-450); Eosinophils Percent Auto 4.9 % (2-4); Hematocrit 38.1 % (36-46); Hemoglobin 13.1 g/dL (12.0-16.0); Lymphocytes Absolute Auto 800 /uL (1100-4500); Lymphocytes Percent Auto 18.6 % (25-40); Mean Corpuscular HGB Conc 34.3 % (30-36); Mean Corpuscular Hemoglobin 34.1 PG (26-34); Mean Corpuscular Volume 99.5 fL (80-100); Monocytes Absolute Auto 500 /uL (0-900); Monocytes Percent Auto 12.4 % (3-14); Neutrophils Absolute Auto 2600 /uL (1500-7000); Neutrophils Percent Auto 63.2 % (50-75); Platelet Count 186 X10^3/uL (150-400); Red Blood Cell Count 3.84 X10^6/uL (4.0-5.2); Red Cell Distribution Width 13.9 % (11.6-14.8); White Blood Cell Count 4.1 X10^3/uL (4.5-11.0)
[2022-05-09 10:44] LABS: Alanine Aminotransferase 23 IU/L (<35); Albumin 4.2 g/dL (3.5-5.0); Albumin Globulin Ratio 1.9 (1.0-2.8); Alkaline Phosphatase 93 U/L (38-126); Aspartate Aminotransferase 27 IU/L (14-36); BUN Creatinine Ratio 24.7 (6-22); Bilirubin Total 0.3 mg/dL (0.2-1.3); Blood Urea Nitrogen 19 mg/dL (7-17); C-Reactive Protein Quant 0.8 mg/dL (<1.0); Calcium 8.9 mg/dL (8.4-10.2); Carbon Dioxide 31 mmol/L (22-32); Chloride 104 mmol/L (98-107); Cholesterol 240 mg/dL (140-199); Estimated Glomerular Filt Rate > 60 mL/min (>60); Globulin 2.2 g/dL (1.7-4.1); Glucose 94 mg/dL (80-110); HDL Cholesterol 72 mg/dL (40-60); HEMOLYSIS < 15 (0-50); LDL Cholesterol Calculated 138 mg/dL (<100); Potassium 4.5 mmol/L (3.4-5.1); Sodium 136 mmol/L (137-145); Total Protein 6.4 g/dL (6.3-8.2); Triglycerides 149 mg/dL (35-150)
[2022-05-09 10:52] LABS: Free T4, Direct Thyroxine 1.01 ng/dL (0.78-2.19)
[2022-05-09 10:55] LABS: Erythrocyte Sedimentation Rate 7 MM/HR (0-20)
[2022-05-09 11:03] LABS: Hemoglobin A1C% w Est Avg Glu 5.6 % (4.0-6.0)
[2022-05-09 11:07] LABS: Thyroid Stimulating Hormone 1.99 uIU/mL (0.47-4.68)
== END ==
PROVIDERS: Family Provider Internal Medicine; PCP Internal Medicine; Referring Provider Internal Medicine; Visit Provider Internal Medicine
DX: E78.5 Hyperlipidemia, unspecified (principal); R73.9 Hyperglycemia, unspecified; I10 Essential (primary) hypertension; M25.50 Pain in unspecified joint; M79.10 Myalgia, unspecified site; Z13.6 Encounter for screening for cardiovascular disorders
CPT/HCPCS: 36415; 80053; 80061; 83036; 84439; 84443; 85025; 85651; 86140

== ENCOUNTER 2022-10-05 23:07 | Emergency (ER) | payer MEDICARE, SELFPAY ==
[2022-10-05 23:09] VITALS: BP 168/75; PULSE 69; RESP 21; TEMP 36.7; O2SAT 96; BMI 30.9
[2022-10-06 00:01] LABS: Influenza A - CEPHEID Flu A POSITIVE (NEGATIVE); Influenza B - CEPHEID Flu B NEGATIVE (NEGATIVE); Respiratory Syncytial Virus Negative (Negative)
[2022-10-06 00:07] LABS: COVID-19 CEPHEID 4-PLEX PCR Negative (Negative)
[2022-10-06] MEDS: SODIUM CHLORIDE 0.9% 1,000 ML 1000 ML IV (00:11)
[2022-10-06] MEDS: METOCLOPRAMIDE 10 MG/2 ML INJ IV (00:11)
[2022-10-06] MEDS: KETOROLAC 30 MG/ML VIAL 15 MG IV (00:11)
--- NOTE | 2022-10-06 00:49 | ED.HA ---
HPI - Headache General Chief Complaint: Headache Stated Complaint: migraine x2 days Time Seen by Provider: 10/05/22 23:08 Mode of arrival: Ambulatory History of Present Illness HPI Narrative: 72-year-old female nonsmoker with history asthma and migraine headaches presents with her in the chief complaint of upper respiratory symptoms for the past 3-5 days including sneezing, runny nose and dry hacking cough. She states that she has developed a headache over the past few days that is similar to prior migraines but did not respond to her typical therapies what she takes at home. She states it was gradual in onset and seems to be her left frontal, it is made worse by bright lights and loud noise. She denies any head injury or trauma. She has no neck pain, takes no blood thinners and has had no fever. She did vomit once yesterday but that was the only time. Related Data Home Medications Medication Instructions Recorded Confirmed methotrexate sodium 2.5 mg tablet 20 mg PO QWEEK 04/26/18 08/29/22 multivitamin 1 tab PO DAILY 04/26/18 08/29/22 meloxicam 15 mg tablet 15 mg PO DAILY 09/04/18 08/29/22 albuterol sulfate 90 mcg/actuation See Rx Instructions .Route 11/27/18 08/29/22 aerosol inhaler (Ventolin HFA) .COMPLEX PRN Shortness Of Breath fluticasone propionate 110 2 puff inhalation BID 12/05/19 08/29/22 mcg/actuation HFA aerosol inhaler halobetasol propionate 0.05 % 1 applictn topical DAILY PRN #0 12/05/19 08/29/22 topical ointment grams Iron OTC 1 tab PO DAILY 05/07/20 08/29/22 cholecalciferol (vitamin D3) 25 25 mcg PO DAILY 05/07/20 08/29/22 mcg (1,000 unit) capsule folic acid 1 mg tablet 1 mg PO DAILY 05/07/20 08/29/22 omega-3 fatty acids 1,000 mg 1,000 mg PO DAILY 05/07/20 08/29/22 capsule (Fish Oil Concentrate) montelukast 10 mg tablet 10 mg PO DAILY 01/29/21 08/29/22 cyclobenzaprine 5 mg tablet 10 mg PO BEDTIME 06/27/22 10/17/22 Previous Rx's Medication Instructions Recorded rizatriptan 10 mg tablet (Maxalt) 10 mg PO ONCE PRN migraine 11/16/20 headache #12 tabs ondansetron 4 mg disintegrating 4 mg PO Q8H PRN nausea and 08/10/21 tablet vomiting #24 tabs bupropion HCl 75 mg tablet 75 mg PO BID #180 tabs 12/07/21 omeprazole 40 mg capsule,delayed 40 mg PO BID #180 caps 05/13/22 release verapamil 180 mg 24 hr 180 mg PO DAILY #90 caps 06/02/22 capsule,extended release alprazolam 0.25 mg tablet 0.25 mg PO TID PRN anxiety #30 tabs 06/13/22 metoprolol succinate 50 mg 50 mg PO DAILY #90 tabs 06/23/22 tablet,extended release 24 hr hydrocodone 5 mg-acetaminophen 325 See Rx Instructions PO Q4H PRN 08/29/22 mg tablet pain #20 tabs triamcinolone acetonide 0.1 % 1 applic topical QID #80 grams 08/29/22 topical cream kfshzhb-adpycstbnc-MCF-caffeine 30 1 cap PO Q6H PRN headache #90 caps 09/19/22 mg-50 mg-325 mg-40 mg capsule (Ascomp with Codeine) ropinirole 0.25 mg tablet 0.25 - 0.5 mg PO TID PRN restless 09/20/22 leg(s) #360 tabs Allergies Allergy/AdvReac Type Severity Reaction Status Date / Time shellfish derived Allergy Intermediate EATING Verified 08/29/22 10:37 LARGE AMOUNTS, ITCHY Sulfa (Sulfonamide Allergy Mild HIVES/FEVER Verified 08/29/22 10:37 Antibiotics) trimethoprim Allergy Mild ANYTHING Verified 08/29/22 10:37 WITH SULFA UNSURE WITH THE INGREDIENTS sulfamethoxazole Allergy Verified 08/29/22 10:37 [From ] zolpidem [ZOLPIDEM] AdvReac Intermediate sleep Verified 08/29/22 10:37 walking Review of Systems Review of Systems Narrative: GENERAL: See HPI HEENT: See HPI RESPIRATORY: See HPI CARDIOVASCULAR: Denies chest pain, palpitations, orthopnea, edema, GASTROINTESTINAL: Denies nausea, vomiting, abdominal pain, diarrhea, constipation, melena. : Denies dysuria, frequency, incontinence, hematuria, urinary retention. MUSCULOSKELETAL: denies weakness, joint pain, or bony pain SKIN: Denies rash, skin lesions, or other NEUROLOGIC: See HPI PSYCHIATRIC: No concerning psychosocial issues. 12 point review of systems is negative except for those stated above Patient History Medical History Allergic rhinitis, unspecified Anemia (~2000) Anxiety (~1989) Asthma (~2009) Chronic cough (~1984) De Quervain's disease (radial styloid tenosynovitis) Depression (~1979) Essential hypertension (01/24/18) Fibroids (~2000) Foot pain (~2002) Fracture of ulna, right, closed GERD (gastroesophageal reflux disease) (~2002) GI bleeding H/O migraine (~1979) Hay fever (~1979) Headache (~1969) Herpes (~1979) Knee pain Osteoarthritis (~2012) Other and unspecified hyperlipidemia Pneumonia (~2011) Post traumatic stress disorder (PTSD) (~2011) Psoriatic arthritis Recurrent sinusitis (~1979) Restless leg syndrome Shoulder pain (~1999) Upper airway resistance syndrome Surgical History Anesthesia History of Sim fundoplication (~2003) Long's neuroma (~2012) Status post arthroscopy (~2009) Status post functional endoscopic sinus surgery Status post rotator cuff repair (~05/2000) Surgical procedure planned (~03/2000) Family History Brother Age: 74 Heart disease Mental health problem Alcoholic Brother Age: 70 Diabetes mellitus Heart disease Hypertension Father Heart disease Mother Diabetes mellitus Hypertension Mental health problem Grandmother Mental health problem Bipolar 1 disorder Alcoholic Sister Fibromyalgia Grandfather No problems noted. Grandmother No problems noted. Sister No problems noted. Sister Fibromyalgia Social History marital status: number of children: 2 household members: spouse lives independently: Yes caregiver/support person: No housing: house pets and animals: Yes education level: college travel history: other Smoking Status: Never smoker Tobacco: How many years used: 0 second hand exposure: Yes (Early in life) alcohol intake: current substance use type: tranquilizers, sedatives, opiates and other Smoking Status: Never smoker Substance Use Type: does not use Exam Narrative Exam Narrative: GENERAL: [72] year old patient appears stated age. Well-developed patient, in mild distress. HEAD: Atraumatic. Normocephalic. EYES: Pupils equal round and reactive. Extraocular motions intact. No scleral icterus. No injection or drainage. ENT: Nose without bleeding, purulent drainage. Throat without erythema, tonsillar hypertrophy or exudate. Airway patent. NECK: Trachea midline. Non tender, no meningeal signs CARDIOVASCULAR: Regular rate and rhythm without murmurs, gallops, or rubs. RESPIRATORY: Faint expiratory wheeze, deep breath does elicit cough.. GASTROINTESTINAL: Abdomen soft, non-tender, nondistended. EXTREMITIES: No edema or joint tenderness. BACK: Nontender without deformity or crepitance. No flank tenderness. NEURO: AOx3. SKIN: No rash or erythema of visible areas Initial Vital Signs Initial Vital Signs: Vital Signs Temperature 98.1 F 10/05/22 23:09 Pulse Rate 69 10/05/22 23:09 Respiratory Rate 21 10/05/22 23:09 Blood Pressure 168/75 H 10/05/22 23:09 Pulse Oximetry 96 10/05/22 23:09 Oxygen Delivery Method 10/05/22 23:09 Course Orders Ordered: ED Orders 10/05/22 23:18 Covid-19 + FLU A/B + RSV - PCR Stat Sodium Chloride (Normal Saline 0.9%) 1,000 mls @ 1,000 mls/hr IV BOLUS ONE Stop: 10/06/22 00:59 Last Admin: 10/06/22 00:11 Dose: 1,000 mls/hr Documented By: ILYA Discontinued Medications Ketorolac Tromethamine (Ketorolac 30 Mg/Ml Vial) 15 mg IV NOW ONE Stop: 10/06/22 00:01 Last Admin: 10/06/22 00:11 Dose: 15 mg Documented By: ILYA Metoclopramide HCl (Metoclopramide 10 Mg/2 Ml Inj) 10 mg IV NOW ONE Stop: 10/06/22 00:01 Last Admin: 10/06/22 00:11 Dose: 10 mg Documented By: ILYA Vital Signs Vital signs: Vital Signs - 8 hr 10/05/22 23:09 Temperature 98.1 F Pulse Rate 69 Respiratory Rate 21 Blood Pressure 168/75 H Pulse Oximetry 96 Oxygen Delivery Method Room Air MDM - Headache Lab Data Labs: Lab Results 10/05/22 Range/Units 23:18 SARS-CoV-2 (PCR) Negative (Negative) Influenza A (RT-PCR) Flu a positive H (NEGATIVE) Influenza B (RT-PCR) Flu b negative (NEGATIVE) RSV (PCR) Negative (Negative) MDM Narrative Medical decision making narrative: Headache considerations include, but not limited to: Subarachnoid hemorrhage, but unlikely as patient denies sudden onset of pain, not worst of life, or neck pain Meningitis considered, but thought unlikely given lack of Brudzinski's, Kernig's sign, altered mental status or fever Giant cell arteritis considered, but thought unlikely given lack of unilateral findings, pain in taoist, vision change HTN Emergency considered, but thought unlikely given normal vitals Other serious diagnoses considered unlikely given lack of red flag findings such as sudden onset, increasing frequency, immunocompromise, systemic signs (fever, chills, stiff neck, or rash), focal neurologic findings, trauma, blood thinners, etc. Patient has been ill for least 3 days, we did discuss Tamiflu but she is not interested at this point. She has breathing treatments, nausea medicine and other pain meds at home. She is been given extensive return precautions and questions have been answered to her apparent satisfaction Discharge Plan Departure Patient Disposition: Home Clinical Impression: Influenza A Instructions: DI for Influenza -- Adult Activity Restrictions/Additional Instructions: *You have been diagnosed with [influenza a] *What to do: *Please continue to take your regular medications as directed. *Please follow up with your primary care provider in 2-3 days, call for an appointment. Let them know you were seen in the Emergency Department and that we ask that you be seen in follow up. We will electronically transmit a record of today's note if your PCP is in our system *Return to Emergency Department if you should have any new, worsening or concerning symptoms Prescriptions: No Action halobetasol propionate 0.05 % ointment 1 applictn topical DAILY PRNQty: 0 rizatriptan [Maxalt] 10 mg tablet 10 mg PO ONCE PRN (Reason: migraine headache) Qty: 12 3RF ondansetron 4 mg tablet,disintegrating 4 mg PO Q8H PRN (Reason: nausea and vomiting) Qty: 24 1RF bupropion HCl 75 mg tablet 75 mg PO BID Qty: 180 3RF omeprazole 40 mg capsule,delayed release(DR/EC) 40 mg PO BID Qty: 180 3RF verapamil 180 mg capsule,ext rel. pellets 24 hr 180 mg PO DAILY Qty: 90 3RF alprazolam 0.25 mg tablet 0.25 mg PO TID PRN (Reason: anxiety) Qty: 30 2RF metoprolol succinate 50 mg tablet extended release 24 hr 50 mg PO DAILY Qty: 90 3RF xoqvipe-ddzkdrxxte-ZHX-caff [Ascomp with Codeine] 57-01-448-40 mg capsule 1 cap PO Q6H PRN (Reason: headache) Qty: 90 2RF ropinirole 0.25 mg tablet 0.25 - 0.5 mg PO TID PRN (Reason: restless leg(s)) Qty: 360 3RF meloxicam 15 mg tablet 15 mg PO DAILY Flovent HFA 110 mcg/actuation HFA aerosol inhaler 2 puff INHALATION BID cyclobenzaprine 5 mg tablet 10 mg PO BEDTIME hydrocodone-acetaminophen 5-325 mg tablet See Rx Instructions PO Q4H PRN (Reason: pain) Qty: 20 0RF Rx Instructions: 1-2 tabs PO Q4H PRN; triamcinolone acetonide 0.1 % cream 1 applic topical QID Qty: 80 0RF multivitamin tablet 1 tab PO DAILY methotrexate sodium 2.5 mg tablet 20 mg PO QWEEK Label Comments: 4 tabs daily 10 mg in AM and 10 mg in PM. 8 tablets a week folic acid 1 mg tablet 1 mg PO DAILY Iron OTC 1 tab PO DAILY cholecalciferol (vitamin D3) 25 mcg (1,000 unit) capsule 25 mcg PO DAILY omega-3 fatty acids [Fish Oil Concentrate] 1,000 mg capsule 1,000 mg PO DAILY montelukast 10 mg tablet 10 mg PO DAILY albuterol sulfate [Ventolin HFA] 90 MCG/PUFF HFA aerosol inhaler See Rx Instructions .ROUTE .COMPLEX PRN (Reason: Shortness Of Breath) Rx Instructions: take as directed Referrals: Junior Khan MD [Primary Care Provider] -
[2022-10-06 01:00] VITALS: BP 132/68; PULSE 79; RESP 16; O2SAT 98
== END 2022-10-06 01:01 | disposition home or self-care (01) ==
PROVIDERS: Emergency Provider Emergency Medicine; Family Provider Internal Medicine; PCP Internal Medicine
DX: J10.1 Influenza due to other identified influenza virus with other respiratory manifestations (principal); Z20.822 Contact with and (suspected) exposure to COVID-19
CPT/HCPCS: 0241U; 96361; 96374; 96375; 99283; 99284; J1885; J2765

== ENCOUNTER → 2023-02-14 14:12 | Outpatient (CLI) | payer MEDICARE, SELFPAY ==
--- NOTE | 2023-02-14 | DI.RAD.S_ITS ---
PROCEDURE: XR CHEST 2V INDICATIONS: DYSPNEA TECHNIQUE: 2 views of the chest were acquired. COMPARISON: [facility], CHEST 2 VIEW, 03/23/2015, 10:37. [facility], , CHEST 1 VIEW, 05/31/2012, 18:17. FINDINGS: Surgical changes and devices: None. Lungs and pleura: No dense consolidation or pleural effusion. Suspected stable scarring at the right lung base Mediastinum: Mediastinal contours are normal. Heart size is normal. Bones and chest wall: No suspicious bony abnormalities. Soft tissues appear unremarkable. IMPRESSION: No acute radiographic abnormality. Dictated by: Bernardino Arrieta M.D. on 02/14/2023 at 16:19 Approved by: Bernardino Arrieta M.D. on 02/14/2023 at 16:20
== END ==
PROVIDERS: Family Provider Internal Medicine; PCP Internal Medicine; Referring Provider Internal Medicine Critical Care Medicine; Visit Provider Internal Medicine Critical Care Medicine
DX: R06.00 Dyspnea, unspecified (principal)
CPT/HCPCS: 71046

== ENCOUNTER 2023-04-27 11:06 | Day surgery (SDC) | payer MEDICARE, SELFPAY ==
[2023-04-27] VITALS (8 sets, daily range): BP systolic 100–129; BP diastolic 44–85; PULSE 52–67; RESP 12–30; TEMP 36.2–36.6; O2SAT 66–96; BMI 29.2
--- NOTE | 2023-04-27 | PATH_ITS ---
[facility] Accession Number: [id number] No. of containers..02 Tissue . 01 Material submitted: . PART A: gastrointestinal site - ANTRUM BIOPSY PART B: colon - SIGMOID POLYP . 01 Diagnosis: A. Gastric Antrum, Biopsy: Gastric antral mucosa with mild features of reactive gastropathy and mild chronic inflammation. Negative for Helicobacter organisms by immunohistochemistry. Negative for intestinal metaplasia. Negative for dysplasia or malignancy. . B. Sigmoid Colon Polyp: Tubulovillous adenoma with high-grade dysplasia; please see comment. No evidence of malignancy. Additional step sections examined. [facility] 05/05/2023 1456 Local . 01 Comment: Part B: Sections from the sigmoid colon polyp are of a tubulovillous adenoma with high-grade dysplasia as evidenced by a cribriform architecture and focal loss of nuclear polarity. Given the fragmented nature of the specimen, and specimen orientation, evaluation of the margin is not possible. Correlation with endoscopic findings before and after polypectomy to assure complete removal of the lesion, and close clinical followup are recommended. . As part of routine quality compliance manager, Dr. Velazquez has reviewed part B of this case and agrees with the diagnosis of tubulvillous adenoma with high-grade dysplasia. . 01 Electronically signed: . Prince Chaudhry MD, PhD, Pathologist NPI- [id number] . 01 Gross description: . Part A: ANTRUM BIOPSY: Received in formalin are 4 fragment(s) of interiano, soft tissue measuring 0.1 x 0.1 x 0.1 cm to 0.3 x 0.2 x 0.2 cm submitted entirely in 1 cassette(s) Part B: SIGMOID POLYP: Received in formalin are 2 fragments of interiano soft tissue measuring 1.0 x 1.0 x 1.0 cm in aggregate. Specimen is sectioned and submitted in its entirety in 1 cassette. /[facility] 05/03/2023 0058 Local . 01 Microscopic: . An immunohistochemical stain was performed to evaluate for Helicobacter organisms and is negative. The control stain showed appropriate reactivity. . * This test was developed and its performance characteristics determined by [facility]. It has not been cleared or approved by the U.S. Food and Drug Administration. The FDA has determined that such clearance or approval is not necessary. This test is used for clinical purposes. It should not be regarded as investigational or for research. . 01 Pathologist provided ICD-10: K29.70, D12.5 . 01 CPT . 845347, 493974, X43215 Specimen Comment: A courtesy copy of this report has been sent to [phone] Performed at: 01 [facility] [address] [place] [address], [place], [place] [id number] MD Moncho Alba MD Phone: [phone]
--- NOTE | 2023-04-27 11:35 | PM.HP.1 ---
History of Present Illness History of Present Illness Date Patient Seen: 04/27/23 Time Patient Seen: 11:35 Chief complaint: [facility] Narrative: Ayanna is here for her EGD and colonoscopy. See office note from last month for details. In short, she has had some rectal bleeding with mucus along with diarrhea. She also has reflux. [facility] Medical History Allergic rhinitis, unspecified Anemia (~2000) Anxiety (~1989) Asthma (~2009) Chronic cough (~1984) De Quervain's disease (radial styloid tenosynovitis) Depression (~1979) Essential hypertension (01/24/18) Fibroids (~2000) Foot pain (~2002) Fracture of ulna, right, closed GERD (gastroesophageal reflux disease) (~2002) GI bleeding H/O migraine (~1979) Hay fever (~1979) Headache (~1969) Herpes (~1979) Knee pain Osteoarthritis (~2012) Other and unspecified hyperlipidemia Pneumonia (~2011) Post traumatic stress disorder (PTSD) (~2011) Psoriatic arthritis Recurrent sinusitis (~1979) Restless leg syndrome Shoulder pain (~1999) Upper airway resistance syndrome Surgical History Anesthesia History of Sim fundoplication (~2003) Long's neuroma (~2012) Status post arthroscopy (~2009) Status post functional endoscopic sinus surgery Status post rotator cuff repair (~05/2000) Surgical procedure planned (~03/2000) Family History Brother Age: 74 Heart disease Mental health problem Alcoholic Brother Age: 70 Diabetes mellitus Heart disease Hypertension Father Heart disease Mother Diabetes mellitus Hypertension Mental health problem Grandmother Mental health problem Bipolar 1 disorder Alcoholic Sister Fibromyalgia Grandfather No problems noted. Grandmother No problems noted. Sister No problems noted. Sister Fibromyalgia Social History marital status: number of children: 2 household members: spouse lives independently: Yes caregiver/support person: No housing: house pets and animals: Yes education level: college travel history: other Smoking Status: Never smoker Tobacco: How many years used: 0 second hand exposure: Yes (Early in life) alcohol intake: current substance use type: tranquilizers, sedatives, opiates and other Meds Home Medications and Allergies Home Medications Medication Instructions Recorded Confirmed Type methotrexate sodium 2.5 mg tablet 20 mg PO QWEEK 04/26/18 04/27/23 History multivitamin 1 tab PO DAILY 04/26/18 04/27/23 History meloxicam 15 mg tablet 15 mg PO DAILY 09/04/18 04/27/23 History albuterol sulfate 90 mcg/actuation See Rx Instructions .Route 11/27/18 04/27/23 History aerosol inhaler (Ventolin HFA) .COMPLEX PRN Shortness Of Breath fluticasone propionate 110 2 puff inhalation BID 12/05/19 04/27/23 History mcg/actuation HFA aerosol inhaler halobetasol propionate 0.05 % 1 applictn topical DAILY PRN Skin 12/05/19 04/27/23 History topical ointment Irritation #0 grams Iron OTC 1 tab PO DAILY 05/07/20 03/22/23 History cholecalciferol (vitamin D3) 25 25 mcg PO DAILY 05/07/20 04/27/23 History mcg (1,000 unit) capsule folic acid 1 mg tablet 1 mg PO DAILY 05/07/20 04/27/23 History omega-3 fatty acids 1,000 mg 1,000 mg PO DAILY 05/07/20 04/27/23 History capsule (Fish Oil Concentrate) montelukast 10 mg tablet 10 mg PO DAILY 01/29/21 04/27/23 History ondansetron 4 mg disintegrating 4 mg PO Q8H PRN nausea and 08/10/21 04/27/23 Rx tablet vomiting #24 tabs omeprazole 40 mg capsule,delayed 40 mg PO BID #180 caps 05/13/22 04/27/23 Rx release verapamil 180 mg 24 hr 180 mg PO DAILY #90 caps 06/02/22 04/27/23 Rx capsule,extended release ropinirole 0.25 mg tablet 0.25 - 0.5 mg PO TID PRN restless 09/20/22 04/27/23 Rx leg(s) #360 tabs betamethasone dipropionate 0.05 % 1 applic topical BID PRN 11/17/22 04/27/23 Rx topical cream itching/rash #45 grams alprazolam 0.25 mg tablet 0.25 mg PO TID PRN anxiety #30 tabs 11/24/22 04/27/23 Rx rizatriptan 10 mg tablet (Maxalt) 10 mg PO ONCE PRN migraine 11/24/22 04/27/23 Rx headache #12 tabs bupropion HCl 75 mg tablet 75 mg PO BID #180 tabs 12/09/22 04/27/23 Rx ucljjlk-ailxrhayac-HQZ-caffeine 30 1 cap PO Q6H PRN headache #90 caps 01/13/23 04/27/23 Rx mg-50 mg-325 mg-40 mg capsule (Ascomp with Codeine) cetirizine 10 mg tablet (Zyrtec) 20 mg PO BEDTIME 03/07/23 04/27/23 History loratadine 10 mg tablet 20 mg PO QAM 03/07/23 04/27/23 History metoprolol succinate 100 mg 100 mg PO DAILY #90 tabs 03/07/23 04/27/23 Rx tablet,extended release 24 hr Allergies Allergy/AdvReac Type Severity Reaction Status Date / Time shellfish derived Allergy Intermediate EATING Verified 04/27/23 11:34 LARGE AMOUNTS, ITCHY Sulfa (Sulfonamide Allergy Mild HIVES/FEVER Verified 04/27/23 11:34 Antibiotics) trimethoprim Allergy Mild ANYTHING Verified 04/27/23 11:34 WITH SULFA UNSURE WITH THE INGREDIENTS sulfamethoxazole Allergy Verified 04/27/23 11:34 [From ] zolpidem [ZOLPIDEM] AdvReac Intermediate sleep Verified 04/27/23 11:34 walking Exam Const General: No acute distress Resp Effort & Inspection: normal respiratory effort Assessment & Plan Assessment and plan (1) Rectal bleeding: Status: Acute (2) Dysphagia: Qualifiers: Dysphagia type: oropharyngeal phase Qualified Code(s): R13.12 - Dysphagia, oropharyngeal phase Status: Acute Plan We reviewed the risks and benefits of EGD and colonoscopy and she would like to proceed.
[2023-04-27] MEDS: LACTATED RINGERS 1,000 ML 84 ML IV (11:47)
--- NOTE | 2023-04-27 13:32 | PM.OP.EC ---
Operative Date/Time/Diagnoses Date of procedure: 04/27/23 Time of procedure: 13:32 Pre-op diagnosis: Rectal bleeding and dysphagia Post-op diagnosis: same Procedure & Clinicians Study performed: EGD and colonoscopy Same procedure as scheduled: Yes Surgeon: Tom Castro Procedure Notes Procedure in detail: Surgeon: Tom Castro MD Anesthesia: Laura Leon DO Procedure in detail: A timeout was performed. A bite blocked was placed and monitors were attached to the patient. The patient was positioned in a left lateral decubitus position. Sedation was administered. Once the patient was sedated the endoscope was inserted through the bite block and passed through the esophagus and stomach and into the duodenum. No abnormalities were seen. We then withdrew the scope into the stomach. There was mild antritis and random biopsies were taken from the antrum. The endoscope was retroflexed and hiatal hernia was seen. The endoscope was straightned and withdrawn into the esophagus. No abnormalities were seen. Findings: Mild antritis Next we repositioned the patient for a colonoscopy. A digital rectal exam was performed and was normal. The colonoscope was inserted and advanced to the cecum. The appendiceal orifice was identified and photographed. The scope was slowly withdrawn over greater than 6 minutes. There was a rather large polyp in the sigmoid colon measuring roughly 2 cm. This was removed in 2 passes with the hot snare. Two pieces were sent together as sigmoid polyp. The scope was retroflexed in the rectum and internal hemorrhoids were seen. Findings: Large sigmoid polyp EBL: 5 mL Scope withdrawal time: 38 minutes Sedation minutes: 55 minutes Post-procedure Disposition: PACU
== END 2023-04-27 14:41 | disposition home or self-care (01) ==
PROVIDERS: Family Provider Internal Medicine; PCP Internal Medicine; Referring Provider Surgery; Visit Provider Surgery
PROC: 0DJD8ZZ Inspection of Lower Intestinal Tract, Via Natural or Artificial Opening Endoscopic (ICD-10-PCS; CPT 45378; principal; 2023-04-27 12:15)
PROC: 0DJ08ZZ Inspection of Upper Intestinal Tract, Via Natural or Artificial Opening Endoscopic (ICD-10-PCS; CPT 43235; 2023-04-27 12:15)
DX: K62.5 Hemorrhage of anus and rectum (principal); R13.10 Dysphagia, unspecified; K29.50 Unspecified chronic gastritis without bleeding; K44.9 Diaphragmatic hernia without obstruction or gangrene; K64.8 Other hemorrhoids; G89.18 Other acute postprocedural pain; R10.9 Unspecified abdominal pain; Z79.899 Other long term (current) drug therapy; K31.9 Disease of stomach and duodenum, unspecified; D12.5 Benign neoplasm of sigmoid colon
CPT/HCPCS: 45385; 43239; 36415; 74018; 80053; 83690; 85025; 96374; 99284; J2405; J2704

== ENCOUNTER 2023-04-27 20:48 | Emergency (ER) | payer MEDICARE, SELFPAY ==
[2023-04-27 20:57] VITALS: BMI 29.2
[2023-04-27 21:00] VITALS: BP 152/76; PULSE 74; RESP 16; TEMP 36.9; O2SAT 96
[2023-04-27 21:01] VITALS: BP 140/83; PULSE 80; RESP 20; O2SAT 97
--- NOTE | 2023-04-27 21:11 | DI.RAD.S_ITS ---
PROCEDURE: XR ABDOMEN 1V INDICATIONS: Colonoscopy today, lower abdominal pain TECHNIQUE: One view of the abdomen acquired. COMPARISON: None. FINDINGS: Surgical changes and devices: None. Bowel: Bowel gas pattern demonstrates distended loops of small and large bowel with bowel gas demonstrated in the rectum. There are a few scattered air-fluid levels. Soft tissues: No suspicious abdominal calcifications. No definite evidence of intraperitoneal free air. Bones: No suspicious bony lesions. IMPRESSION: 1. Nonspecific bowel gas pattern with mildly distended loops of small and large bowel with scattered air-fluid levels. The findings likely reflect residual gas distention from colonoscopy versus an ileus. Bowel obstruction is less likely. 2. No definite pneumoperitoneum. Dictated by: Moncho Buchanan M.D. on 04/27/2023 at 23:10 Approved by: Moncho Buchanan M.D. on 04/27/2023 at 23:12
[2023-04-27 21:14] LABS: Add Manual Diff / Slide Review NO; Basophils Absolute Auto 100 /uL (0-100); Basophils Percent Auto 0.5 % (0-2); Eosinophils Absolute Auto 100 /uL (0-450); Eosinophils Percent Auto 0.5 % (2-4); Hematocrit 40.8 % (36-46); Hemoglobin 13.8 g/dL (12.0-16.0); Lymphocytes Absolute Auto 900 /uL (1100-4500); Lymphocytes Percent Auto 6.5 % (25-40); Mean Corpuscular HGB Conc 33.8 % (30-36); Mean Corpuscular Hemoglobin 32.5 PG (26-34); Monocytes Absolute Auto 700 /uL (0-900); Monocytes Percent Auto 5.4 % (3-14); Neutrophils Absolute Auto 11400 /uL (1500-7000); Neutrophils Percent Auto 87.1 % (50-75); Platelet Count 257 X10^3/uL (150-400); Red Blood Cell Count 4.25 X10^6/uL (4.0-5.2); Red Cell Distribution Width 14.1 % (11.6-14.8); White Blood Cell Count 13.1 X10^3/uL (4.5-11.0)
[2023-04-27] MEDS: ONDANSETRON 4 MG/2 ML INJ IV (21:16)
[2023-04-27 21:24] LABS: Alanine Aminotransferase 37 IU/L (<35); Albumin 4.5 g/dL (3.5-5.0); Albumin Globulin Ratio 1.5 (1.0-2.8); Alkaline Phosphatase 94 U/L (38-126); Aspartate Aminotransferase 34 IU/L (14-36); BUN Creatinine Ratio 26.6 (6-22); Bilirubin Total 0.8 mg/dL (0.2-1.3); Blood Urea Nitrogen 17 mg/dL (7-17); Calcium 9.9 mg/dL (8.4-10.2); Carbon Dioxide 25 mmol/L (22-32); Chloride 104 mmol/L (98-107); Estimated Glomerular Filt Rate > 60 mL/min (>60); Glucose 122 mg/dL (80-110); HEMOLYSIS < 15 (0-50); Lipase 68 U/L (23-300); Sodium 137 mmol/L (137-145); Total Protein 7.5 g/dL (6.3-8.2)
--- NOTE | 2023-04-27 21:46 | ED_ITS ---
HPI - General Adult General Chief complaint: Abdominal Pain Stated complaint: abd pain s/p egd, colonoscopy Time Seen by Provider: 04/27/23 20:58 Source: patient Mode of arrival: Ambulatory History of Present Illness HPI narrative: Patient is a 73-year-old female who earlier today underwent a colonoscopy and upper endoscopy by General surgery. The procedure went well. She was discharged home. Since that time she is had quite a bit of abdominal pain and nausea. She was not sent home with any nausea or pain medication. She did have some tramadol left over from a prior knee surgery which she took and she states that did not help any of her symptoms. She is still passing flatus. Has not had any vomiting. No fevers. She does feel like her abdomen is distended. Related Data Home Medications Medication Instructions Recorded Confirmed methotrexate sodium 2.5 mg tablet 20 mg PO QWEEK 04/26/18 04/27/23 multivitamin 1 tab PO DAILY 04/26/18 04/27/23 meloxicam 15 mg tablet 15 mg PO DAILY 09/04/18 04/27/23 albuterol sulfate 90 mcg/actuation See Rx Instructions .Route 11/27/18 04/27/23 aerosol inhaler (Ventolin HFA) .COMPLEX PRN Shortness Of Breath fluticasone propionate 110 2 puff inhalation BID 12/05/19 04/27/23 mcg/actuation HFA aerosol inhaler halobetasol propionate 0.05 % 1 applictn topical DAILY PRN Skin 12/05/19 04/27/23 topical ointment Irritation #0 grams Iron OTC 1 tab PO DAILY 05/07/20 03/22/23 cholecalciferol (vitamin D3) 25 25 mcg PO DAILY 05/07/20 04/27/23 mcg (1,000 unit) capsule folic acid 1 mg tablet 1 mg PO DAILY 05/07/20 04/27/23 omega-3 fatty acids 1,000 mg 1,000 mg PO DAILY 05/07/20 04/27/23 capsule (Fish Oil Concentrate) montelukast 10 mg tablet 10 mg PO DAILY 01/29/21 04/27/23 cetirizine 10 mg tablet (Zyrtec) 20 mg PO BEDTIME 03/07/23 04/27/23 loratadine 10 mg tablet 20 mg PO QAM 03/07/23 04/27/23 Previous Rx's Medication Instructions Recorded ondansetron 4 mg disintegrating 4 mg PO Q8H PRN nausea and 08/10/21 tablet vomiting #24 tabs omeprazole 40 mg capsule,delayed 40 mg PO BID #180 caps 05/13/22 release verapamil 180 mg 24 hr 180 mg PO DAILY #90 caps 06/02/22 capsule,extended release ropinirole 0.25 mg tablet 0.25 - 0.5 mg PO TID PRN restless 09/20/22 leg(s) #360 tabs betamethasone dipropionate 0.05 % 1 applic topical BID PRN 11/17/22 topical cream itching/rash #45 grams alprazolam 0.25 mg tablet 0.25 mg PO TID PRN anxiety #30 tabs 11/24/22 rizatriptan 10 mg tablet (Maxalt) 10 mg PO ONCE PRN migraine 11/24/22 headache #12 tabs bupropion HCl 75 mg tablet 75 mg PO BID #180 tabs 12/09/22 rghunxo-hsfvgiiqnx-WMB-caffeine 30 1 cap PO Q6H PRN headache #90 caps 01/13/23 mg-50 mg-325 mg-40 mg capsule (Ascomp with Codeine) metoprolol succinate 100 mg 100 mg PO DAILY #90 tabs 03/07/23 tablet,extended release 24 hr Allergies Allergy/AdvReac Type Severity Reaction Status Date / Time shellfish derived Allergy Intermediate EATING Verified 04/27/23 21:11 LARGE AMOUNTS, ITCHY Sulfa (Sulfonamide Allergy Mild HIVES/FEVER Verified 04/27/23 21:11 Antibiotics) trimethoprim Allergy Mild ANYTHING Verified 04/27/23 21:11 WITH SULFA UNSURE WITH THE INGREDIENTS sulfamethoxazole Allergy Verified 04/27/23 21:11 [From ] zolpidem [ZOLPIDEM] AdvReac Intermediate sleep Verified 04/27/23 21:11 walking Review of Systems Constitutional Constitutional: Reports system reviewed and no additional complaints, except as documented Respiratory Respiratory: Reports system reviewed and no additional complaints, except as documented Gastrointestinal Gastrointestinal: Reports system reviewed and no additional complaints, except as documented Genitourinary Genitourinary: Reports system reviewed and no additional complaints, except as documented Integumentary/Breasts Skin/Breast: Reports system reviewed and no additional complaints, except as documented Hematologic/Lymphatic On Anticoagulants: No Patient History Medical History Allergic rhinitis, unspecified Anemia (~2000) Anxiety (~1989) Asthma (~2009) Chronic cough (~1984) De Quervain's disease (radial styloid tenosynovitis) Depression (~1979) Essential hypertension (01/24/18) Fibroids (~2000) Foot pain (~2002) Fracture of ulna, right, closed GERD (gastroesophageal reflux disease) (~2002) GI bleeding H/O migraine (~1979) Hay fever (~1979) Headache (~1969) Herpes (~1979) Knee pain Osteoarthritis (~2012) Other and unspecified hyperlipidemia Pneumonia (~2011) Post traumatic stress disorder (PTSD) (~2011) Psoriatic arthritis Recurrent sinusitis (~1979) Restless leg syndrome Shoulder pain (~1999) Upper airway resistance syndrome Surgical History Anesthesia History of Sim fundoplication (~2003) Long's neuroma (~2012) Status post arthroscopy (~2009) Status post functional endoscopic sinus surgery Status post rotator cuff repair (~05/2000) Surgical procedure planned (~03/2000) Family History Brother Age: 74 Heart disease Mental health problem Alcoholic Brother Age: 70 Diabetes mellitus Heart disease Hypertension Father Heart disease Mother Diabetes mellitus Hypertension Mental health problem Grandmother Mental health problem Bipolar 1 disorder Alcoholic Sister Fibromyalgia Grandfather No problems noted. Grandmother No problems noted. Sister No problems noted. Sister Fibromyalgia Social History marital status: number of children: 2 household members: spouse lives independently: Yes caregiver/support person: No housing: house pets and animals: Yes education level: college travel history: other Smoking Status: Never smoker Tobacco: How many years used: 0 second hand exposure: Yes (Early in life) alcohol intake: current substance use type: tranquilizers, sedatives, opiates and other Smoking Status: Never smoker alcohol intake frequency: holidays/special occasions only Substance Use Type: does not use Exam Initial Vital Signs Initial Vital Signs: Vital Signs Temperature 98.5 F 04/27/23 21:00 Pulse Rate 74 04/27/23 21:00 Respiratory Rate 16 04/27/23 21:00 Blood Pressure 152/76 H 04/27/23 21:00 Pulse Oximetry 96 04/27/23 21:00 Oxygen Delivery Method Room Air 04/27/23 21:00 HENMT Head: normal to inspection and normocephalic Resp Effort & Inspection: normal respiratory effort Auscultation: clear to auscultation bilaterally Cardio Rate: regular rate Rhythm: regular rhythm GI Inspection: normal to inspection and non-distended Palpation: soft, No firm, No guarding and tender Auscultation: normal bowel sounds Skin General: no rashes or lesions noted Neuro General: patient alert, patient awake and moves all extremities Extrem General: normal to inspection and capillary refill normal Course Orders Ordered: ED Orders 04/27/23 21:05 Complete Blood Count AUTO DIFF Stat Comprehensive Metabolic Panel Stat Lipase Stat 04/27/23 21:11 XR abdomen 1V Stat Discontinued Medications Hydrocodone Bitart/Acetaminophen (Hydrocodone/Acet 5/325 Tablet) 1 tab PO NOW ONE Stop: 04/27/23 21:47 Last Admin: 04/27/23 21:50 Dose: 1 tab Documented By: Hydrocodone Bitart/Acetaminophen (Hydrocodone/Acet 5/325 Prepack) 1 bottle MISC SEEINSTR ONE Stop: 04/27/23 22:51 Last Admin: 04/27/23 23:22 Dose: 1 bottle Ondansetron HCl (Ondansetron 4 Mg/2 Ml Inj) 4 mg IV NOW ONE Stop: 04/27/23 21:13 Last Admin: 04/27/23 21:16 Dose: 4 mg Documented By: Ondansetron HCl (Ondansetron 4 Mg Odt Prepack) 1 bottle MISC SEEINSTR ONE Stop: 04/27/23 22:51 Last Admin: 04/27/23 23:22 Dose: 1 bottle Vital Signs Vital signs: Vital Signs - 8 hr 04/27/23 21:00 04/27/23 21:01 04/27/23 22:22 Temperature 98.5 F Pulse Rate 74 80 68 Respiratory Rate 16 20 16 Blood Pressure 152/76 H 140/83 130/59 L Pulse Oximetry 96 97 96 Oxygen Delivery Method Room Air Room Air Medical Decision Making Medical Records Medical records reviewed: Yes I reviewed the patient's medical records. Lab Data Lab results reviewed: Yes I reviewed the patient's lab results. 04/27/23 21:05 04/27/23 21:05 Labs: Lab Results 04/27/23 04/27/23 Range/Units 21:05 21:05 WBC 13.1 H (4.5-11.0) X10^3/uL RBC 4.25 (4.0-5.2) X10^6/uL Hgb 13.8 (12.0-16.0) g/dL Hct 40.8 (36-46) % MCV 96.0 (80-100) fL MCH 32.5 (26-34) PG MCHC 33.8 (30-36) % RDW 14.1 (11.6-14.8) % Plt Count 257 (150-400) X10^3/uL Neut % (Auto) 87.1 H (50-75) % Lymph % (Auto) 6.5 L (25-40) % [place] % (Auto) 5.4 (3-14) % Eos % (Auto) 0.5 L (2-4) % Baso % (Auto) 0.5 (0-2) % Neut # (Auto) 37539 H (2148-5705) /uL Lymph # (Auto) 900 L (9496-9732) /uL [place] # (Auto) 700 (0-900) /uL Eos # (Auto) 100 (0-450) /uL Baso # (Auto) 100 (0-100) /uL Sodium 137 (137-145) mmol/L Potassium 4.0 (3.4-5.1) mmol/L Chloride 104 (98-107) mmol/L Carbon Dioxide 25 (22-32) mmol/L BUN 17 (7-17) mg/dL Creatinine 0.64 (0.52-1.04) mg/dL Estimated GFR > 60 (>60) mL/min BUN/Creatinine Ratio 26.6 H (6-22) Glucose 122 H (80-110) mg/dL Calcium 9.9 (8.4-10.2) mg/dL Total Bilirubin 0.8 (0.2-1.3) mg/dL AST 34 (14-36) IU/L ALT 37 H (<35) IU/L Alkaline Phosphatase 94 (38-126) U/L Total Protein 7.5 (6.3-8.2) g/dL Albumin 4.5 (3.5-5.0) g/dL Globulin 3.0 (1.7-4.1) g/dL Albumin/Globulin Ratio 1.5 (1.0-2.8) Lipase 68 (23-300) U/L Imaging Data Abdominal x-ray: Radiologist's Impression: PROCEDURE:? XR ABDOMEN 1V ? INDICATIONS:? Colonoscopy today, lower abdominal pain ? TECHNIQUE:? One view of the abdomen acquired.? ? COMPARISON:? None. ? FINDINGS:? ? Surgical changes and devices:? None.? ? Bowel:? Bowel gas pattern demonstrates distended loops of small and large bowel with bowel gas demonstrated in the rectum.? There are a few scattered air-fluid levels. ? Soft tissues:? No suspicious abdominal calcifications.? No definite evidence of intraperitoneal free air. ? Bones:? No suspicious bony lesions.? ? IMPRESSION:? ? 1. Nonspecific bowel gas pattern with mildly distended loops of small and large bowel with scattered air-fluid levels.? The findings likely reflect residual gas distention from colonoscopy versus an ileus.? Bowel obstruction is less likely. ? 2. No definite pneumoperitoneum MDM Narrative Medical decision making narrative: Patient has a benign exam. Was not vomiting. Is afebrile. Has a soft abdomen. Does have bowel sounds. No indication for further radiologic studies. I suspect that the discomfort is related to the gaseous distention from the colonoscopy. Will discharge patient home with instructions to follow all of the postoperative instructions given her by the general surgeon. She was given return precautions. She expressed understanding and agreement. Discharge Plan Departure Patient Disposition: Home Clinical Impression: Postoperative pain Activity Restrictions/Additional Instructions: Recommend that you continue to follow all of the postprocedure instructions given to you by the general surgeon. Use the nausea medicine in the pain medicine as needed. Return to the emergency department for new or worsening symptoms. Prescriptions: No Action halobetasol propionate 0.05 % ointment 1 applictn topical DAILY PRN (Reason: Skin Irritation) Qty: 0 ondansetron 4 mg tablet,disintegrating 4 mg PO Q8H PRN (Reason: nausea and vomiting) Qty: 24 1RF omeprazole 40 mg capsule,delayed release(DR/EC) 40 mg PO BID Qty: 180 3RF verapamil 180 mg capsule,ext rel. pellets 24 hr 180 mg PO DAILY Qty: 90 3RF ropinirole 0.25 mg tablet 0.25 - 0.5 mg PO TID PRN (Reason: restless leg(s)) Qty: 360 3RF betamethasone dipropionate 0.05 % cream 1 applic topical BID PRN (Reason: itching/rash) Qty: 45 2RF rizatriptan [Maxalt] 10 mg tablet 10 mg PO ONCE PRN (Reason: migraine headache) Qty: 12 3RF alprazolam 0.25 mg tablet 0.25 mg PO TID PRN (Reason: anxiety) Qty: 30 2RF bupropion HCl 75 mg tablet 75 mg PO BID Qty: 180 3RF mpqhxhf-vtvewlojvm-STA-caff [Ascomp with Codeine] 47-62-216-40 mg capsule 1 cap PO Q6H PRN (Reason: headache) Qty: 90 2RF meloxicam 15 mg tablet 15 mg PO DAILY fluticasone propionate 110 mcg/actuation HFA aerosol inhaler 2 puff INHALATION BID cetirizine [Zyrtec] 10 mg tablet 20 mg PO BEDTIME loratadine 10 mg tablet 20 mg PO QAM metoprolol succinate 100 mg tablet extended release 24 hr 100 mg PO DAILY Qty: 90 3RF multivitamin tablet 1 tab PO DAILY methotrexate sodium 2.5 mg tablet 20 mg PO QWEEK Patient Comments: 4 tabs daily 10 mg in AM and 10 mg in PM. 8 tablets a week folic acid 1 mg tablet 1 mg PO DAILY Iron OTC 1 tab PO DAILY cholecalciferol (vitamin D3) 25 mcg (1,000 unit) capsule 25 mcg PO DAILY omega-3 fatty acids [Fish Oil Concentrate] 1,000 mg capsule 1,000 mg PO DAILY montelukast 10 mg tablet 10 mg PO DAILY albuterol sulfate [Ventolin HFA] 90 MCG/PUFF HFA aerosol inhaler See Rx Instructions .ROUTE .COMPLEX PRN (Reason: Shortness Of Breath) Rx Instructions: take as directed Referrals: Junior Khan MD [Primary Care Provider] - Stand Alone Forms: Patient Portal/API
[2023-04-27] MEDS: HYDROCODONE/ACET 5/325 TABLET 1 TAB PO (21:50)
[2023-04-27 22:22] VITALS: BP 130/59; PULSE 68; RESP 16; O2SAT 96
[2023-04-27] MEDS: HYDROCODONE/ACET 5/325 PREPACK 1 BOTTLE MISC (23:22)
[2023-04-27] MEDS: ONDANSETRON 4 MG ODT PREPACK 1 BOTTLE MISC (23:22)
[2023-04-27 23:30] VITALS: BP 138/72; PULSE 72; RESP 16; O2SAT 96
== END 2023-04-27 23:31 | disposition home or self-care (01) ==
PROVIDERS: Emergency Provider Emergency Medicine; Family Provider Internal Medicine; PCP Internal Medicine
DX: G89.18 Other acute postprocedural pain (principal); R10.9 Unspecified abdominal pain; Z79.899 Other long term (current) drug therapy
CPT/HCPCS: 36415; 74018; 80053; 83690; 85025; J2405

== ENCOUNTER 2023-07-03 09:33 | Emergency (ER) | payer MEDICARE, SELFPAY ==
[2023-07-03 09:40] VITALS: BP 143/117; PULSE 52; RESP 18; TEMP 36.4; O2SAT 97; BMI 27.9
--- NOTE | 2023-07-03 09:47 | DI.RAD.S_ITS ---
PROCEDURE: XR KNEE LT 3V INDICATIONS: fall TECHNIQUE: 3 views of the knee were acquired. COMPARISON: [facility], CR, XR KNEE 1 OR 2 VIEWS LEFT, 03/15/2023, 9:19. [facility], CR, XR KNEE 1 OR 2 VIEWS LEFT, 11/29/2022, 9:51. [facility], CR, KNEE 3V LEFT, 10/20/2010, 14:35. FINDINGS: Bones: There is now a sharply angulated 6 mm osseous fragment projecting over the anterior midline of the joint space, new from the prior exam. Donor site not identified the sun, total joint arthroplasty in good position. Soft tissues: Small joint effusion. Prepatellar soft tissue swelling IMPRESSION: Calcific 6 mm density projecting over the midline joint space is new from the prior exam, and may reflect avulsion fracture. Donor site not appreciated Approved by: Steve Mahoney M.D. on 07/03/2023 at 10:34
--- NOTE | 2023-07-03 09:47 | DI.RAD.S_ITS ---
PROCEDURE: XR WRIST RT MIN 3V INDICATIONS: fall TECHNIQUE: 3 views of the wrist were acquired. COMPARISON: [facility], , WRIST MINIMUM 3 VIEWS RIGHT, 07/08/2017, 10:19. FINDINGS: Bones: Old healed and previously instrumented distal radial fracture as well as healed distal ulnar fracture are intact. No evidence of acute fracture. Intercarpal arthritic changes noted. Generalized decreased osseous mineralization. Soft tissues: No suspicious soft tissue calcifications. IMPRESSION: Old healed distal radial and ulnar fractures. No evidence of acute fracture or foreign body. Osteoarthritis and osteopenia Approved by: Steve Mahoney M.D. on 07/03/2023 at 10:35
--- NOTE | 2023-07-03 09:47 | DI.RAD.S_ITS ---
PROCEDURE: XR HAND RT MIN 3V INDICATIONS: fall TECHNIQUE: 3 views of the hand(s) acquired. COMPARISON: None. FINDINGS: Bones: No fractures or dislocations. Deformity of the distal radius from remote fracture. Severe triscaphe joint degenerative arthritis. Degenerative arthritis at the 1st carpometacarpal joint. Diffuse osteopenia. Soft tissues: No suspicious soft tissue calcifications. IMPRESSION: 1. Remote trauma. 2. Severe triscaphe joint degenerative arthritis and degenerative arthritis involving the 1st carpometacarpal joint. 3. Diffuse osteopenia. 4. No evidence acute bony abnormality. If clinical suspicion and/or symptoms persist, further assessment with repeat plain films, or advanced imaging (e.g., CT, MRI, or bone scan) may be helpful for further assessment. Dictated by: Jacinto Agustin M.D. on 07/03/2023 at 11:57 Approved by: Jacinto Agustin M.D. on 07/03/2023 at 11:59
[2023-07-03] MEDS: IBUPROFEN 400 MG TABLET 800 MG PO (11:40)
[2023-07-03 13:08] VITALS: BP 174/81; PULSE 55; RESP 16; O2SAT 96
--- NOTE | 2023-07-03 13:08 | ED.FALL ---
HPI - Fall <Shawn Hightwoer PA-C - Last Filed: 07/03/23 13:22> General Chief Complaint: Fall Stated Complaint: R/hand swollen after fall/ needs ring cut off Time Seen by Provider: 07/03/23 11:07 Source: patient Mode of arrival: Ambulatory History of Present Illness HPI Narrative: 73-year-old female with past medical history GERD, hyperlipidemia, hypertension, asthma, anxiety, depression, psoriatic arthritis presents to the ED status post a fall sustained 3 days ago. Patient tripped on a door met landed on her right hand, left knee. Patient did report a head strike but denies loss consciousness. Patient is not on blood thinners. Patient complains of swelling and pain in the right ring finger as well as pain in the right knee. Patient denies numbness, tingling, weakness. Related Data Home Medications Medication Instructions Recorded Confirmed methotrexate sodium 2.5 mg tablet 20 mg PO QWEEK 04/26/18 04/27/23 multivitamin 1 tab PO DAILY 04/26/18 04/27/23 meloxicam 15 mg tablet 15 mg PO DAILY 09/04/18 04/27/23 albuterol sulfate 90 mcg/actuation See Rx Instructions .Route 11/27/18 04/27/23 aerosol inhaler (Ventolin HFA) .COMPLEX PRN Shortness Of Breath fluticasone propionate 110 2 puff inhalation BID 12/05/19 04/27/23 mcg/actuation HFA aerosol inhaler halobetasol propionate 0.05 % 1 applictn topical DAILY PRN Skin 12/05/19 04/27/23 topical ointment Irritation #0 grams Iron OTC 1 tab PO DAILY 05/07/20 03/22/23 cholecalciferol (vitamin D3) 25 25 mcg PO DAILY 05/07/20 04/27/23 mcg (1,000 unit) capsule folic acid 1 mg tablet 1 mg PO DAILY 05/07/20 04/27/23 omega-3 fatty acids 1,000 mg 1,000 mg PO DAILY 05/07/20 04/27/23 capsule (Fish Oil Concentrate) montelukast 10 mg tablet 10 mg PO DAILY 01/29/21 04/27/23 cetirizine 10 mg tablet (Zyrtec) 20 mg PO BEDTIME 04/25/23 06/15/23 loratadine 10 mg tablet 20 mg PO QAM 03/07/23 04/27/23 Previous Rx's Medication Instructions Recorded ondansetron 4 mg disintegrating 4 mg PO Q8H PRN nausea and 08/10/21 tablet vomiting #24 tabs ropinirole 0.25 mg tablet 0.25 - 0.5 mg PO TID PRN restless 09/20/22 leg(s) #360 tabs betamethasone dipropionate 0.05 % 1 applic topical BID PRN 11/17/22 topical cream itching/rash #45 grams rizatriptan 10 mg tablet (Maxalt) 10 mg PO ONCE PRN migraine 11/24/22 headache #12 tabs bupropion HCl 75 mg tablet 75 mg PO BID #180 tabs 12/09/22 metoprolol succinate 100 mg 100 mg PO DAILY #90 tabs 03/07/23 tablet,extended release 24 hr omeprazole 40 mg capsule,delayed 40 mg PO BID #180 caps 06/05/23 release verapamil 180 mg 24 hr 180 mg PO DAILY #90 caps 06/05/23 capsule,extended release alprazolam 0.25 mg tablet 0.25 mg PO TID PRN anxiety #30 tabs 06/13/23 ebkytrb-[id number]-[id number]-caffeine 30 1 cap PO Q6H PRN headache #90 caps 06/13/23 mg-50 mg-325 mg-40 mg capsule (Ascomp with Codeine) Allergies Allergy/AdvReac Type Severity Reaction Status Date / Time shellfish derived Allergy Intermediate EATING Verified 04/27/23 21:11 LARGE AMOUNTS, ITCHY Sulfa (Sulfonamide Allergy Mild HIVES/FEVER Verified 04/27/23 21:11 Antibiotics) trimethoprim Allergy Mild ANYTHING Verified 04/27/23 21:11 WITH SULFA UNSURE WITH THE INGREDIENTS sulfamethoxazole Allergy Verified 04/27/23 21:11 [From ] zolpidem [ZOLPIDEM] AdvReac Intermediate sleep Verified 04/27/23 21:11 walking Review of Systems <Shawn Hightower PA-C - Last Filed: 07/03/23 13:22> Review of Systems ROS Unobtainable: All systems reviewed & are unremarkable except as noted in HPI and below Constitutional Constitutional: Denies chills, Denies fatigue, Denies fever(s), Denies frequent falls, Denies lethargy and Denies weakness Eyes Eyes: Denies change in vision, Denies eye discharge, Denies irritation and Denies loss of vision ENT Ears, Nose, Mouth, and Throat: Denies change in voice, Denies dizziness, Denies neck pain, Denies sore throat and Denies throat swelling Cardiovascular Cardiovascular: Denies chest pain, Denies irregular heart rhythm, Denies lightheadedness, Denies palpitations, Denies dyspnea, Denies dyspnea on exertion and Denies orthopnea Respiratory Respiratory: Denies cough, Denies dyspnea, Denies dyspnea on exertion and Denies wheezing Gastrointestinal Gastrointestinal: Denies abdominal pain, Denies change in bowel habits, Denies diarrhea, Denies nausea and Denies vomiting Genitourinary Genitourinary: Denies hematuria, Denies flank pain, Denies urinary incontinence and Denies urinary urgency Musculoskeletal Musculoskeletal: Denies back pain, Denies muscle weakness, Denies neck pain, Denies numbness and Denies tingling Comments: Left knee pain, right ring finger pain and swelling Integumentary/Breasts Skin/Breast: Denies pruritus, Denies erythema, Denies rash and Denies wounds Neurologic Neurologic: Denies behavioral changes, Denies confusion, Denies dizziness, Denies frequent falls, Denies loss of vision, Denies numbness, Denies tingling and Denies weakness Psychiatric Psychiatric: Denies anxiety, Denies behavioral changes, Denies confusion, Denies depression, Denies homicidal ideation and Denies suicidal ideation Endocrine Endocrine: Denies fatigue, Denies flushing and Denies palpitations Hematologic/Lymphatic Hematologic/Lymphatic: Denies easy bruising Allergic/Immunologic Allergic/Immunologic: Denies urticaria, Denies throat swelling and Denies wheezing Patient History <Shawn Hightower PA-C - Last Filed: 07/03/23 13:22> Medical History Allergic rhinitis, unspecified Anemia (~2000) Anxiety (~1989) Asthma (~2009) Chronic cough (~1984) De Quervain's disease (radial styloid tenosynovitis) Depression (~1979) Essential hypertension (01/24/18) Fibroids (~2000) Foot pain (~2002) Fracture of ulna, right, closed GERD (gastroesophageal reflux disease) (~2002) GI bleeding H/O migraine (~1979) Hay fever (~1979) Headache (~1969) Herpes (~1979) Knee pain Osteoarthritis (~2012) Other and unspecified hyperlipidemia Pneumonia (~2011) Post traumatic stress disorder (PTSD) (~2011) Psoriatic arthritis Recurrent sinusitis (~1979) Restless leg syndrome Shoulder pain (~1999) Upper airway resistance syndrome Surgical History Anesthesia History of Sim fundoplication (~2003) Long's neuroma (~2012) Status post arthroscopy (~2009) Status post functional endoscopic sinus surgery Status post rotator cuff repair (~05/2000) Surgical procedure planned (~03/2000) Family History Brother Age: 74 Heart disease Mental health problem Alcoholic Brother Age: 70 Diabetes mellitus Heart disease Hypertension Father Heart disease Mother Diabetes mellitus Hypertension Mental health problem Grandmother Mental health problem Bipolar 1 disorder Alcoholic Sister Fibromyalgia Grandfather No problems noted. Grandmother No problems noted. Sister No problems noted. Sister Fibromyalgia Social History marital status: number of children: 2 household members: spouse lives independently: Yes caregiver/support person: No housing: house pets and animals: Yes education level: college travel history: other Smoking Status: Never smoker Tobacco: How many years used: 0 second hand exposure: Yes (Early in life) alcohol intake: current substance use type: tranquilizers, sedatives, opiates and other Smoking Status: Never smoker alcohol intake frequency: holidays/special occasions only Substance Use Type: does not use Exam <Shawn Hightower PA-C - Last Filed: 07/03/23 13:22> Narrative Exam Narrative: Const General:?cooperative, healthy appearing and comfortable [facility] Head:?normal to inspection Ears:?hearing grossly normal bilaterally Nose:?external nose normal Face and sinus:?normal facial exam and sinuses nontender Mouth:?oral mucosae normal Throat:?posterior oropharynx normal Eyes General:?appearance normal, both eyes and all related structures Neck Neck:?normal visual inspection and no lymphadenopathy noted Resp Effort & Inspection:?normal respiratory effort Auscultation:?clear to auscultation bilaterally Cardio Rate:?regular rate Rhythm:?regular rhythm Musculoskeletal Left knee appears mildly swollen, tender to palpation. Right ring finger is swollen, bruised. Patient is unable to get her ring off. Patient is neurovascularly intact. Neuro General:?patient alert, patient awake and patient oriented x3 Initial Vital Signs Initial Vital Signs: Vital Signs Temperature 97.6 F 07/03/23 09:40 Pulse Rate 52 L 07/03/23 09:40 Respiratory Rate 18 07/03/23 09:40 Blood Pressure 143/117 H 07/03/23 09:40 Pulse Oximetry 97 07/03/23 09:40 Oxygen Delivery Method Nasal Cannula 07/03/23 09:40 <Yudith Lind DO - Last Filed: 07/04/23 08:13> Initial Vital Signs Initial Vital Signs: Vital Signs Temperature 97.6 F 07/03/23 09:40 Pulse Rate 52 L 07/03/23 09:40 Respiratory Rate 18 07/03/23 09:40 Blood Pressure 143/117 H 07/03/23 09:40 Pulse Oximetry 97 07/03/23 09:40 Oxygen Delivery Method Nasal Cannula 07/03/23 09:40 Course <Shawn Hightower PA-C - Last Filed: 07/03/23 13:22> Orders Ordered: Discontinued Medications Ibuprofen (Ibuprofen 400 Mg Tablet) 800 mg PO NOW ONE Stop: 07/03/23 11:24 Last Admin: 07/03/23 11:40 Dose: 800 mg Documented By: VIN Vital Signs Vital signs: Vital Signs - 8 hr 07/03/23 09:40 Temperature 97.6 F Pulse Rate 52 L Respiratory Rate 18 Blood Pressure 143/117 H Pulse Oximetry 97 Oxygen Delivery Method Nasal Cannula <Yudith Lind DO - Last Filed: 07/04/23 08:13> Orders Ordered: Discontinued Medications Ibuprofen (Ibuprofen 400 Mg Tablet) 800 mg PO NOW ONE Stop: 07/03/23 11:24 Last Admin: 07/03/23 11:40 Dose: 800 mg Documented By: VIN Vital Signs Vital signs: Vital Signs - 8 hr 07/03/23 09:40 Temperature 97.6 F Pulse Rate 52 L Respiratory Rate 18 Blood Pressure 143/117 H Pulse Oximetry 97 Oxygen Delivery Method Nasal Cannula MDM - Fall <Shawn Hightower PA-C - Last Filed: 07/03/23 13:22> MDM Narrative Medical decision making narrative: 73-year-old female with past medical history GERD, hyperlipidemia, hypertension, asthma, anxiety, depression, psoriatic arthritis presents to the ED status post a fall sustained 3 days ago. Concern for fracture/dislocation versus musculoskeletal sprain/strain versus other. Obtained x-rays. X-ray of the left knee shows a calcific 6 mm density projecting over the midline joint space that might reflect be an avulsion fracture. Patient's ring was unable to be removed with the tourniquet, was removed with a ring cutter. Patient's finger was splinted and nikolas taped. Recommend follow-up with ortho. ED return precautions discussed with patient. Patient verbalized understanding. Medical records reviewed: Yes Discharge Plan Departure Patient Disposition: Home Clinical Impression: Fall, Avulsion fracture Instructions: DI for Avulsion Fracture, How to Prevent Falls Activity Restrictions/Additional Instructions: You were evaluated in the ED today for a fall. It appears that you have a small avulsion fracture in the left knee, and this does not need further treatment today. Your ring was removed due to the swelling from your finger injury. Your finger has been splinted and nikolas taped for comfort. You may take Tylenol, ibuprofen for pain. Please follow-up with [facility] at [phone] for further evaluation. Return to the ED if you have worsening symptoms, numbness, tingling, weakness. Prescriptions: No Action halobetasol propionate 0.05 % ointment 1 applictn topical DAILY PRN (Reason: Skin Irritation) Qty: 0 ondansetron 4 mg tablet,disintegrating 4 mg PO Q8H PRN (Reason: nausea and vomiting) Qty: 24 1RF ropinirole 0.25 mg tablet 0.25 - 0.5 mg PO TID PRN (Reason: restless leg(s)) Qty: 360 3RF betamethasone dipropionate 0.05 % cream 1 applic topical BID PRN (Reason: itching/rash) Qty: 45 2RF rizatriptan [Maxalt] 10 mg tablet 10 mg PO ONCE PRN (Reason: migraine headache) Qty: 12 3RF bupropion HCl 75 mg tablet 75 mg PO BID Qty: 180 3RF verapamil 180 mg capsule,ext rel. pellets 24 hr 180 mg PO DAILY Qty: 90 3RF omeprazole 40 mg capsule,delayed release(DR/EC) 40 mg PO BID Qty: 180 3RF qcpmexl-lwbwrmcwsz-JOV-caff [Ascomp with Codeine] [id number] mg capsule 1 cap PO Q6H PRN (Reason: headache) Qty: 90 0RF alprazolam 0.25 mg tablet 0.25 mg PO TID PRN (Reason: anxiety) Qty: 30 0RF meloxicam 15 mg tablet 15 mg PO DAILY fluticasone propionate 110 mcg/actuation HFA aerosol inhaler 2 puff INHALATION BID cetirizine [Zyrtec] 10 mg tablet 20 mg PO BEDTIME loratadine 10 mg tablet 20 mg PO QAM metoprolol succinate 100 mg tablet extended release 24 hr 100 mg PO DAILY Qty: 90 3RF multivitamin tablet 1 tab PO DAILY methotrexate sodium 2.5 mg tablet 20 mg PO QWEEK Patient Comments: 4 tabs daily 10 mg in AM and 10 mg in PM. 8 tablets a week folic acid 1 mg tablet 1 mg PO DAILY Iron OTC 1 tab PO DAILY cholecalciferol (vitamin D3) 25 mcg (1,000 unit) capsule 25 mcg PO DAILY omega-3 fatty acids [Fish Oil Concentrate] 1,000 mg capsule 1,000 mg PO DAILY montelukast 10 mg tablet 10 mg PO DAILY albuterol sulfate [Ventolin HFA] 90 MCG/PUFF HFA aerosol inhaler See Rx Instructions .ROUTE .COMPLEX PRN (Reason: Shortness Of Breath) Rx Instructions: take as directed Referrals: Junior Khan MD [Primary Care Provider] - Stand Alone Forms: Patient Portal/API <Yudith Lind DO - Last Filed: 07/04/23 08:13> Cosign ED Attending Mayeature Attestation: I was immediately available in the department for consultation. Documentation has been reviewed.
== END 2023-07-03 13:09 | disposition home or self-care (01) ==
PROVIDERS: Emergency Provider Student in an Organized Health Care Education/Training Program; Family Provider Internal Medicine; PCP Internal Medicine
DX: S82.002A Unspecified fracture of left patella, initial encounter for closed fracture (principal); W18.30XA Fall on same level, unspecified, initial encounter
CPT/HCPCS: 73110; 73130; 73562; 99283; 99284

== ENCOUNTER → 2023-07-20 12:53 | Outpatient (CLI) | payer MEDICARE, SELFPAY | PROVIDERS: Family Provider Internal Medicine; PCP Internal Medicine; Referring Provider Internal Medicine; Visit Provider Internal Medicine | DX: R00.1 Bradycardia, unspecified (principal) | CPT/HCPCS: 93242 ==

== ENCOUNTER → 2023-08-30 12:28 | Outpatient (CLI) | payer MEDICARE, SELFPAY | PROVIDERS: Family Provider Internal Medicine; PCP Internal Medicine; Referring Provider Internal Medicine Critical Care Medicine; Visit Provider Internal Medicine Critical Care Medicine | DX: R91.8 Other nonspecific abnormal finding of lung field (principal) | CPT/HCPCS: 87070; 87116; 87205; 87206 ==

== ENCOUNTER → 2023-08-31 10:43 | Outpatient (CLI) | payer MEDICARE, SELFPAY | PROVIDERS: Family Provider Internal Medicine; PCP Internal Medicine; Referring Provider Internal Medicine Critical Care Medicine; Visit Provider Internal Medicine Critical Care Medicine | DX: R91.8 Other nonspecific abnormal finding of lung field (principal) | CPT/HCPCS: 87116; 87206 ==

== ENCOUNTER → 2023-09-01 12:07 | Outpatient (CLI) | payer MEDICARE, SELFPAY | PROVIDERS: Family Provider Internal Medicine; PCP Internal Medicine; Referring Provider Internal Medicine Critical Care Medicine; Visit Provider Internal Medicine Critical Care Medicine | DX: R91.8 Other nonspecific abnormal finding of lung field (principal) | CPT/HCPCS: 87116; 87206 ==

== ENCOUNTER 2023-09-12 11:28 | Emergency (ER) | payer MEDICARE, SELFPAY ==
[2023-09-12 11:38] VITALS: BP 166/79; PULSE 58; RESP 18; TEMP 36.6; O2SAT 97
--- NOTE | 2023-09-12 11:49 | DI.RAD.S_ITS ---
PROCEDURE: XR KNEE LT 3V INDICATIONS: Pain s/p fall TECHNIQUE: 3 views of the knee were acquired. COMPARISON: [facility], CR, XR KNEE LT 3V, 07/03/2023, 10:08. [facility], CR, KNEE 3V LEFT, 10/20/2010, 14:35. FINDINGS: Bones: There is a mildly displaced fracture of the lateral femoral condyle, fracture line appears to extend to the prosthesis. Small lucency along the tibial aspect of the arthroplasty is stable compared to prior. Soft tissues: Moderate lipohemarthrosis joint effusion. No suspicious soft tissue calcifications. IMPRESSION: 1. Mildly displaced fracture of the lateral femoral condyle with extension of the fracture line to the knee arthroplasty. Moderate lipohemarthrosis. 2. Mild lucency along the anterior aspect of the tibial component of the hardware is stable compared to prior. May represent mild loosening and clinical correlation is recommended. Dictated by: Jcarlos Shirley M.D. on 09/12/2023 at 13:04 Approved by: Jcarlos Shirley M.D. on 09/12/2023 at 13:08
[2023-09-12 13:10] VITALS: BP 182/77; PULSE 65; RESP 18; O2SAT 97
--- NOTE | 2023-09-12 13:25 | ED.LOWEXIN ---
HPI - Extremity Injury (Lower) <Sahwn Hightower PA-C - Last Filed: 09/12/23 14:43> General Chief Complaint: Extremity Injury, Lower Stated Complaint: knocked over by running dog Time Seen by Provider: 09/12/23 12:30 Source: patient Mode of arrival: Wheelchair History of Present Illness HPI Narrative: 73-year-old female with past medical history GERD, hyperlipidemia, hypertension, asthma, anxiety, depression, PTSD, osteoarthritis, psoriatic arthritis, status post left knee replacement surgery in early 2022 presents to the ED status post a left knee injury sustained just prior to arrival. [place], [place] a black Labrador ran into her from behind, causing her left knee to buckle, causing her to fall backwards. Patient states that her left knee was flexed quite a bit by this injury. Patient has since experienced severe pain in the left knee, is unable to bear weight and walk. Patient states that the pain is the worst right behind the kneecap and to the lateral aspect of the knee. Patient denies numbness, tingling, weakness. Patient also had a avulsion injury to the same knee in June 2023. Related Data Home Medications Medication Instructions Recorded Confirmed methotrexate sodium 2.5 mg tablet 20 mg PO QWEEK 04/26/18 08/01/23 multivitamin 1 tab PO DAILY 04/26/18 08/01/23 meloxicam 15 mg tablet 15 mg PO DAILY 09/04/18 08/01/23 albuterol sulfate 90 mcg/actuation See Rx Instructions .Route 11/27/18 08/01/23 aerosol inhaler (Ventolin HFA) .COMPLEX PRN Shortness Of Breath fluticasone propionate 110 2 puff inhalation BID 12/05/19 08/01/23 mcg/actuation HFA aerosol inhaler halobetasol propionate 0.05 % 1 applictn topical DAILY PRN Skin 12/05/19 08/01/23 topical ointment Irritation #0 grams Iron OTC 1 tab PO DAILY 05/07/20 08/01/23 cholecalciferol (vitamin D3) 25 25 mcg PO DAILY 05/07/20 08/01/23 mcg (1,000 unit) capsule folic acid 1 mg tablet 1 mg PO DAILY 05/07/20 08/01/23 omega-3 fatty acids 1,000 mg 1,000 mg PO DAILY 05/07/20 08/01/23 capsule (Fish Oil Concentrate) montelukast 10 mg tablet 10 mg PO DAILY 01/29/21 08/01/23 cetirizine 10 mg tablet (Zyrtec) 20 mg PO BEDTIME 03/07/23 08/01/23 loratadine 10 mg tablet 20 mg PO QAM 03/07/23 08/01/23 Previous Rx's Medication Instructions Recorded ondansetron 4 mg disintegrating 4 mg PO Q8H PRN nausea and 08/10/21 tablet vomiting #24 tabs ropinirole 0.25 mg tablet 0.25 - 0.5 mg (1 - 2 x 0.25 mg) PO 09/20/22 TID PRN restless leg(s) #360 tabs betamethasone dipropionate 0.05 % 1 applic topical BID PRN 11/17/22 topical cream itching/rash #45 grams rizatriptan 10 mg tablet (Maxalt) 10 mg PO ONCE PRN migraine 11/24/22 headache #12 tabs omeprazole 40 mg capsule,delayed 40 mg PO BID #180 caps 06/05/23 release verapamil 180 mg 24 hr 180 mg PO DAILY #90 caps 06/05/23 capsule,extended release alprazolam 0.25 mg tablet 0.25 mg PO TID PRN anxiety #30 tabs 06/13/23 metoprolol succinate 50 mg 50 mg PO DAILY #90 tabs 07/13/23 tablet,extended release 24 hr olmesartan 20 mg tablet 20 mg PO DAILY #90 tabs 07/13/23 pqppuuq-jalcvwwjpm-HWY-caffeine 30 1 cap PO Q6H PRN headache #90 caps 08/15/23 mg-50 mg-325 mg-40 mg capsule (Ascomp with Codeine) bupropion HCl 75 mg tablet 75 mg PO BID #180 tabs 09/07/23 oxycodone-acetaminophen 5 mg-325 1 tab PO Q6H PRN pain 3 days #10 09/12/23 mg tablet (Percocet) tabs Allergies Allergy/AdvReac Type Severity Reaction Status Date / Time shellfish derived Allergy Intermediate EATING Verified 08/01/23 09:52 LARGE AMOUNTS, ITCHY Sulfa (Sulfonamide Allergy Mild HIVES/FEVER Verified 08/01/23 09:52 Antibiotics) trimethoprim Allergy Mild ANYTHING Verified 08/01/23 09:52 WITH SULFA UNSURE WITH THE INGREDIENTS sulfamethoxazole Allergy Verified 08/01/23 09:52 [From ] zolpidem [ZOLPIDEM] AdvReac Intermediate sleep Verified 08/01/23 09:52 walking Review of Systems <Shawn Hightower PA-C - Last Filed: 09/12/23 14:43> Constitutional Constitutional: Denies chills, Denies fatigue, Denies fever(s), Denies frequent falls, Denies lethargy and Denies weakness Eyes Eyes: Denies change in vision, Denies eye discharge, Denies irritation and Denies loss of vision ENT Ears, Nose, Mouth, and Throat: Denies change in voice, Denies dizziness, Denies neck pain, Denies sore throat and Denies throat swelling Cardiovascular Cardiovascular: Denies chest pain, Denies irregular heart rhythm, Denies lightheadedness, Denies palpitations, Denies dyspnea, Denies dyspnea on exertion and Denies orthopnea Respiratory Respiratory: Denies cough, Denies dyspnea, Denies dyspnea on exertion and Denies wheezing Gastrointestinal Gastrointestinal: Denies abdominal pain, Denies change in bowel habits, Denies diarrhea, Denies nausea and Denies vomiting Musculoskeletal Musculoskeletal: Denies neck pain and Denies numbness Comments: Left knee pain Integumentary/Breasts Skin/Breast: Denies pruritus, Denies erythema, Denies rash and Denies wounds Neurologic Neurologic: Denies behavioral changes, Denies confusion, Denies dizziness, Denies frequent falls, Denies loss of vision, Denies numbness and Denies weakness Psychiatric Psychiatric: Denies anxiety, Denies behavioral changes, Denies confusion, Denies depression, Denies homicidal ideation and Denies suicidal ideation Endocrine Endocrine: Denies fatigue, Denies flushing and Denies palpitations Hematologic/Lymphatic Hematologic/Lymphatic: Denies easy bruising Allergic/Immunologic Allergic/Immunologic: Denies urticaria, Denies throat swelling and Denies wheezing Patient History <Shawn Hightower PA-C - Last Filed: 09/12/23 14:43> Medical History Upper airway resistance syndrome Restless leg syndrome Fracture of ulna, right, closed De Quervain's disease (radial styloid tenosynovitis) Osteoarthritis (~2012) Pneumonia (~2011) Chronic cough (~1984) Asthma (~2009) Hay fever (~1979) Post traumatic stress disorder (PTSD) (~2011) Depression (~1979) Anxiety (~1989) Headache (~1969) Knee pain Shoulder pain (~1999) Foot pain (~2002) Anemia (~2000) Recurrent sinusitis (~1979) Herpes (~1979) Fibroids (~2000) GI bleeding H/O migraine (~1979) Other and unspecified hyperlipidemia GERD (gastroesophageal reflux disease) (~2002) Allergic rhinitis, unspecified Essential hypertension (01/24/18) Psoriatic arthritis Surgical History Anesthesia Long's neuroma (~2012) History of Sim fundoplication (~2003) Surgical procedure planned (~03/2000) Status post functional endoscopic sinus surgery Status post arthroscopy (~2009) Status post rotator cuff repair (~05/2000) Family History Brother Age: 74 Heart disease Mental health problem Alcoholic Brother Age: 70 Diabetes mellitus Heart disease Hypertension Father Heart disease Mother Diabetes mellitus Hypertension Mental health problem Grandmother Mental health problem Bipolar 1 disorder Alcoholic Sister Fibromyalgia Grandfather No problems noted. Grandmother No problems noted. Sister No problems noted. Sister Fibromyalgia Social History marital status: number of children: 2 household members: spouse lives independently: Yes caregiver/support person: No housing: house pets and animals: Yes education level: college travel history: other Smoking Status: Never smoker Tobacco: How many years used: 0 second hand exposure: Yes (Early in life) alcohol intake: current substance use type: tranquilizers, sedatives, opiates and other Smoking Status: Never smoker alcohol intake frequency: holidays/special occasions only Substance Use Type: does not use Exam <Shawn Hightower PA-C - Last Filed: 09/12/23 14:43> Narrative Exam Narrative: Const General:?cooperative, healthy appearing and comfortable HENME Head:?normal to inspection Ears:?hearing grossly normal bilaterally Nose:?external nose normal Face and sinus:?normal facial exam and sinuses nontender Mouth:?oral mucosae normal Throat:?posterior oropharynx normal Eyes General:?appearance normal, both eyes and all related structures Neck Neck:?normal visual inspection and no lymphadenopathy noted Resp Effort & Inspection:?normal respiratory effort Auscultation:?clear to auscultation bilaterally Cardio Rate:?regular rate Rhythm:?regular rhythm Musculoskeletal Left knee is tender to palpation on the lateral aspect. Range of motion is severely limited by pain. No bruising. Patient appears neurovascularly intact. Neuro General:?patient alert, patient awake and patient oriented x3 Initial Vital Signs Initial Vital Signs: Vital Signs Temperature 98 F 09/12/23 11:38 Pulse Rate 58 L 09/12/23 11:38 Respiratory Rate 18 09/12/23 11:38 Blood Pressure 166/79 H 09/12/23 11:38 Pulse Oximetry 97 09/12/23 11:38 Oxygen Delivery Method Room Air 09/12/23 11:38 <Thuy Price MD - Last Filed: 09/12/23 14:50> Initial Vital Signs Initial Vital Signs: Vital Signs Temperature 98 F 09/12/23 11:38 Pulse Rate 58 L 09/12/23 11:38 Respiratory Rate 18 09/12/23 11:38 Blood Pressure 166/79 H 09/12/23 11:38 Pulse Oximetry 97 09/12/23 11:38 Oxygen Delivery Method Room Air 09/12/23 11:38 Course <Shawn Hightower PA-C - Last Filed: 09/12/23 14:43> Orders Ordered: ED Orders 09/12/23 11:49 XR knee LT 3V Stat 09/12/23 14:01 CT LE LT wo con Stat Discontinued Medications Oxycodone/Acetaminophen (Oxycodone/Acetaminophen 5/325 Tablet) 1 tab PO NOW ONE Stop: 09/12/23 14:04 Last Admin: 09/12/23 14:21 Dose: 1 tab Documented By: DANNY Vital Signs Vital signs: Vital Signs - 8 hr 09/12/23 11:38 09/12/23 13:10 Temperature 98 F Pulse Rate 58 L 65 Respiratory Rate 18 18 Blood Pressure 166/79 H 182/77 H Pulse Oximetry 97 97 Oxygen Delivery Method Room Air Room Air <Thuy Price MD - Last Filed: 09/12/23 14:50> Orders Ordered: ED Orders 09/12/23 11:49 XR knee LT 3V Stat 09/12/23 14:01 CT LE LT wo con Stat Discontinued Medications Oxycodone/Acetaminophen (Oxycodone/Acetaminophen 5/325 Tablet) 1 tab PO NOW ONE Stop: 09/12/23 14:04 Last Admin: 09/12/23 14:21 Dose: 1 tab Documented By: DANNY Vital Signs Vital signs: Vital Signs - 8 hr 09/12/23 11:38 09/12/23 13:10 Temperature 98 F Pulse Rate 58 L 65 Respiratory Rate 18 18 Blood Pressure 166/79 H 182/77 H Pulse Oximetry 97 97 Oxygen Delivery Method Room Air Room Air MDM - Extremity Injury (Lower) <Shawn Hightower PA-C - Last Filed: 09/12/23 14:43> MDM Narrative Medical decision making narrative: 73-year-old female with past medical history GERD, hyperlipidemia, hypertension, asthma, anxiety, depression, PTSD, osteoarthritis, psoriatic arthritis, status post left knee replacement surgery in early 2022 presents to the ED status post a left knee injury sustained just prior to arrival. Concern for fracture/dislocation versus musculoskeletal sprain/strain versus other. X-ray was obtained which shows a mildly displaced fracture of the lateral femoral condyle with extension of the fracture line to the knee arthroplasty. There is moderate lipohemarthrosis. There is mild lucency along the anterior aspect of the tibial component of the hardware which appears to be stable compared to prior. May represent mild loosening. Patient's orthopedic surgeon Dr. Edmonds from [facility] was consulted. He recommends obtaining a CT scan, discharging patient home with a knee immobilizer and instructions for nonweightbearing. He will contact the patient in 1-2 days further follow-up. Patient was given a Percocet prior to CT. Discussed findings and plan with patient. Prescribed Percocet for pain control until she is able to see Dr. Edmonds. ED return precautions were discussed with patient. Patient verbalized understanding. Medical records reviewed: Yes Discharge Plan Departure Patient Disposition: Home Clinical Impression: Fracture of left knee region Instructions: DI for Fracture Activity Restrictions/Additional Instructions: You were evaluated in the ED today for a knee injury that you sustained earlier today. An x-ray was obtained and it appears that you have a fracture to the knee. Your orthopedic surgeon Dr. Edmonds was consulted and he recommends that we obtain a CT, rk your knee with and immobilizer, keep your knee nonweightbearing. Dr. Kennedy will contact you in 1-2 days to schedule a further evaluation. A CT scan has been obtained. You have been prescribed some medication for pain control until you see Dr. Edmonds. Please return to the ED if you have worsening symptoms, numbness, tingling, weakness. Prescriptions: New oxycodone-acetaminophen [Percocet] 5-325 mg tablet 1 tab PO Q6H PRN (Reason: pain) 3 Days Qty: 10 0RF No Action halobetasol propionate 0.05 % ointment 1 applictn topical DAILY PRN (Reason: Skin Irritation) Qty: 0 ondansetron 4 mg tablet,disintegrating 4 mg PO Q8H PRN (Reason: nausea and vomiting) Qty: 24 1RF ropinirole 0.25 mg tablet 0.25 - 0.5 mg PO TID PRN (Reason: restless leg(s)) Qty: 360 3RF betamethasone dipropionate 0.05 % cream 1 applic topical BID PRN (Reason: itching/rash) Qty: 45 2RF rizatriptan [Maxalt] 10 mg tablet 10 mg PO ONCE PRN (Reason: migraine headache) Qty: 12 3RF verapamil 180 mg capsule,ext rel. pellets 24 hr 180 mg PO DAILY Qty: 90 3RF omeprazole 40 mg capsule,delayed release(DR/EC) 40 mg PO BID Qty: 180 3RF alprazolam 0.25 mg tablet 0.25 mg PO TID PRN (Reason: anxiety) Qty: 30 0RF qbmaypm-hgmdibjhuy-JTK-caff [Ascomp with Codeine] [id number] mg capsule 1 cap PO Q6H PRN (Reason: headache) Qty: 90 0RF bupropion HCl 75 mg tablet 75 mg PO BID Qty: 180 3RF meloxicam 15 mg tablet 15 mg PO DAILY fluticasone propionate 110 mcg/actuation HFA aerosol inhaler 2 puff INHALATION BID cetirizine [Zyrtec] 10 mg tablet 20 mg PO BEDTIME loratadine 10 mg tablet 20 mg PO QAM metoprolol succinate 50 mg tablet extended release 24 hr 50 mg PO DAILY Qty: 90 3RF olmesartan 20 mg tablet 20 mg PO DAILY Qty: 90 3RF multivitamin tablet 1 tab PO DAILY methotrexate sodium 2.5 mg tablet 20 mg PO QWEEK Patient Comments: 4 tabs daily 10 mg in AM and 10 mg in PM. 8 tablets a week folic acid 1 mg tablet 1 mg PO DAILY Iron OTC 1 tab PO DAILY cholecalciferol (vitamin D3) 25 mcg (1,000 unit) capsule 25 mcg PO DAILY omega-3 fatty acids [Fish Oil Concentrate] 1,000 mg capsule 1,000 mg PO DAILY montelukast 10 mg tablet 10 mg PO DAILY albuterol sulfate [Ventolin HFA] 90 MCG/PUFF HFA aerosol inhaler See Rx Instructions .ROUTE .COMPLEX PRN (Reason: Shortness Of Breath) Rx Instructions: take as directed Referrals: Junior Khan MD [Primary Care Provider] - Stand Alone Forms: Patient Portal/API ED Sign-out <Thuy Price MD - Last Filed: 09/12/23 14:50> Cosign ED Attending Cosignature Attestation: I did not see this patient. I was available all times for consultation.
--- NOTE | 2023-09-12 14:01 | DI.CT.S_ITS ---
PROCEDURE: CT LE LT WO CON INDICATIONS: knee fx TECHNIQUE: Noncontrast 1-1.5 mm axial sections acquired from the mid-patella to the proximal tibia, with coronal and sagittal reformats. COMPARISON: None. FINDINGS: Image quality: Diagnostic. Significant beam hardening artifacts from knee prosthesis are seen.. Bones: Patient is status post left total knee arthroplasty. Surgical hardware are noted in place. No gross hardware loosening or failure is noted. Acute comminuted and impacted fracture involving distal femoral shaft extending to involve medial and lateral femoral condyle is seen adjacent to the prosthesis . There is slight medial and lateral displacement of the fractured condylar fragments. No fracture is seen in proximal tibia or fibula. No dislocation. No suspicious bony lesions. Soft tissues: There is large lipohemarthrosis. No gross calcified intra-articular loose bodies. No full-thickness quadriceps tendon or patellar tendon rupture. No abnormal soft tissue calcifications. IMPRESSION: 1. Acute comminuted and slightly impacted distal femoral shaft fracture extending to involve both medial and lateral femoral condyle as above. 2. No other fracture or dislocation. Prior left total knee arthroplasty without gross hardware loosening or failure. 3. Large lipohemarthrosis. No abnormal soft tissue calcifications. Dictated by: Cristopher Montalvo M.D. on 09/12/2023 at 14:48 Approved by: Cristopher Montalvo M.D. on 09/12/2023 at 14:51
[2023-09-12] MEDS: OXYCODONE/ACETAMINOPHEN 5/325 TABLET 1 TAB PO (14:21)
[2023-09-12 14:48] VITALS: BP 153/68; PULSE 55; RESP 18; TEMP 36.7; O2SAT 97
== END 2023-09-12 14:56 | disposition home or self-care (01) ==
PROVIDERS: Emergency Provider Student in an Organized Health Care Education/Training Program; Family Provider Internal Medicine; PCP Internal Medicine
DX: S82.002A Unspecified fracture of left patella, initial encounter for closed fracture (principal); W18.30XA Fall on same level, unspecified, initial encounter; Z79.899 Other long term (current) drug therapy
CPT/HCPCS: 73562; 73700; 99284

== ENCOUNTER → 2023-10-23 10:08 | Outpatient (CLI) | payer MEDICARE, SELFPAY ==
--- NOTE | 2023-10-23 10:09 | DI.RAD.S_ITS ---
Bone Density Report Name: ARCHANA MOORE Age: 73 Sex: Female Ethnicity: White Date of : 1950 Indication: postmenopausal; screening for osteoporosis; parental hip fracture; Referring Provider: CHEVY FORD Study: Bone densitometry was performed. Exam Date: October 23, 2023 Accession number: [id number] Bone Density: Region BMD T-score Z-score Classification AP Spine(L1-L4) 1.186 1.3 3.5 Normal Femoral Neck (Right) 0.679 -1.5 0.4 Osteopenia Total Hip (Right) 0.906 -0.3 1.4 Normal Total Forearm (Left) 0.405 -3.2 -1.0 Osteoporosis 1/3 Forearm (Left) 0.591 -1.7 0.6 Osteopenia UD Forearm (Left) 0.251 -3.3 -1.6 Osteoporosis World Health Organization criteria for BMD impression classify patients as: Normal (T-score at or above -1.0), Osteopenia (T-score between -1.0 and -2.5), or Osteoporosis (T-score at or below -2.5). 10-year Fracture Risk(1): Major Osteoporotic Fracture 17% Hip Fracture 5.8% Reported Risk Factors: [place] (), Neck BMD=0.679, BMI=26.6, parental fracture (1) FRAX(R) Version 3.08. Fracture probability calculated for an untreated patient. Fracture probability may be lower if the patient has received treatment. Previous Exams: -- Region Exam Age BMD T-score BMD Change BMD Change Date g/cm2 vs Baseline vs Previous -- AP Spine (L1-L4) 10/23/2023 73 1.186 1.3 0.004 (0.3%)# 0.004 (0.3%)# 12/06/2016 66 1.182 1.2 Total Hip(Right) 10/23/2023 73 0.906 -0.3 -0.041 (-4.3%)# -0.041 (-4.3%)# 12/06/2016 66 0.947 0.0 -- *Denotes significance at 95% confidence level, LSC for AP Spine = 0.022 g/cm2, LSC for Total Hip = 0.027 g/cm2 # Denotes dissimilar scan types or analysis methods Impression: The patient has low bone mass, based on the Right Femoral Neck T-score. The patient has an estimated ten-year risk of hip fracture of 5.8% and an estimated ten-year risk of major fracture of 17%, based on the WHO FRAX algorithm. The patient has risk factors, including: parental hip fracture. No significant bone loss was observed. Discussion: BONE DENSITY IS LOW AT ONE OR MORE SKELETAL SITES. THE PATIENT'S BMD AND CLINICAL RISK FACTORS CONTRIBUTE TO THIS PATIENT'S INCREASED RISK OF FRACTURE. This patient's lowest T-score is low at one or more skeletal sites. It meets the World Health Organization's (WHO) criteria for low bone mass (T-score between -1.0 and -2.5). The patient's 10-year risk of hip fracture as calculated by FRAX exceeds the threshold where pharmacological therapy is recommended by the National Osteoporosis Foundation (NOF). However, all treatment decisions require clinical judgment and consideration of individual patient factors, including patient preferences, comorbidities, previous drug use, risk factors not captured in the FRAX model (e.g., frailty, falls, vitamin D deficiency, increased bone turnover, interval significant decline in bone density) and possible under or overestimation of fracture risk by FRAX. The patient should follow a healthful lifestyle (good nutrition with adequate calcium and vitamin D, and appropriate weight-bearing exercise). Follow-Up: Consider a repeat BMD and Vertebral Fracture Assessment (VFA) exam in 2 years or sooner if medically necessary, to reassess this patient's status. Reported by: [facility] NAYELY MARTINEZ M.D. on 10/23/2023 10:44:00 AM.
== END ==
PROVIDERS: Family Provider Internal Medicine; PCP Internal Medicine; Referring Provider Internal Medicine; Visit Provider Internal Medicine
DX: M85.89 Other specified disorders of bone density and structure, multiple sites (principal); Z78.0 Asymptomatic menopausal state
CPT/HCPCS: 77080; 77081

== ENCOUNTER 2023-12-14 08:16 | Day surgery (SDC) | payer MEDICARE, SELFPAY ==
--- NOTE | 2023-12-14 | PATH_ITS ---
[facility] Accession Number: [id number] No. of containers..01 Tissue . 01 Material submitted: . colon - SIGMOID POLYP . 01 Diagnosis: Sigmoid Colon Polyp: Colonic mucosa with focal mucosal hyperplasia. Negative for dysplasia or malignancy. Additional step sections examined. MRV 12/19/2023 1616 Local . 01 Electronically signed: . Prince Chaudhry MD, PhD, Pathologist NPI- [id number] . 01 Gross description: . SIGMOID POLYP: Received in formalin is 1 fragment(s) of interiano, soft tissue measuring 0.4 x 0.3 x 0.1 cm submitted entirely in 1 cassette(s) /FUNMILAYO 12/15/2023 2248 Local . 01 Pathologist provided ICD-10: K63.5 . 01 CPT . 236968 Specimen Comment: A courtesy copy of this report has been sent to [phone] Performed at: 01 [facility] [address] [place] [address], [place], [place] [id number] MD Moncho Alba MD Phone: [phone]
[2023-12-14] MEDS: LACTATED RINGERS 1,000 ML 42 ML IV (09:33)
--- NOTE | 2023-12-14 09:38 | PM.HP.1 ---
History of Present Illness History of Present Illness Date Patient Seen: 12/14/23 Time Patient Seen: 09:38 Chief complaint: [facility] [place] Narrative: Ayanna is a 73-year-old woman who had a colonoscopy in April with findings of a large tubulovillous adenoma with high-grade dysplasia. She is back for her six-month follow up exam. She has not noticed any more blood or mucus since the procedure. [facility] Medical History (Updated 12/14/23 @ 09:39 by Tom Castro MD) Osteoporosis Upper airway resistance syndrome Restless leg syndrome Fracture of ulna, right, closed De Quervain's disease (radial styloid tenosynovitis) Osteoarthritis (~2012) Pneumonia (~2011) Chronic cough (~1984) Asthma (~2009) Hay fever (~1979) Post traumatic stress disorder (PTSD) (~2011) Depression (~1979) Anxiety (~1989) Headache (~1969) Knee pain Shoulder pain (~1999) Foot pain (~2002) Anemia (~2000) Recurrent sinusitis (~1979) Herpes (~1979) Fibroids (~2000) GI bleeding H/O migraine (~1979) Other and unspecified hyperlipidemia GERD (gastroesophageal reflux disease) (~2002) Allergic rhinitis, unspecified Essential hypertension (01/24/18) Psoriatic arthritis Surgical History Anesthesia Long's neuroma (~2012) History of Sim fundoplication (~2003) Surgical procedure planned (~03/2000) Status post functional endoscopic sinus surgery Status post arthroscopy (~2009) Status post rotator cuff repair (~05/2000) Family History Brother Age: 75 Heart disease Mental health problem Alcoholic Brother Age: 71 Diabetes mellitus Heart disease Hypertension Father Heart disease Mother Diabetes mellitus Hypertension Mental health problem Grandmother Mental health problem Bipolar 1 disorder Alcoholic Sister Fibromyalgia Grandfather No problems noted. Grandmother No problems noted. Sister No problems noted. Sister Fibromyalgia Social History marital status: number of children: 2 household members: spouse lives independently: Yes caregiver/support person: No housing: house pets and animals: Yes education level: college travel history: other Smoking Status: Never smoker Tobacco: How many years used: 0 second hand exposure: Yes (Early in life) alcohol intake: current substance use type: tranquilizers, sedatives, opiates and other Meds Home Medications and Allergies Home Medications Medication Instructions Recorded Confirmed Type methotrexate sodium 2.5 mg tablet 20 mg PO QWEEK 04/26/18 12/14/23 History multivitamin 1 tab PO DAILY 04/26/18 12/14/23 History meloxicam 15 mg tablet 15 mg PO DAILY 09/04/18 12/14/23 History albuterol sulfate 90 mcg/actuation See Rx Instructions .Route 11/27/18 12/14/23 History aerosol inhaler (Ventolin HFA) .COMPLEX PRN Shortness Of Breath fluticasone propionate 110 2 puff inhalation BID 12/05/19 12/14/23 History mcg/actuation HFA aerosol inhaler halobetasol propionate 0.05 % 1 applictn topical DAILY PRN Skin 12/05/19 12/14/23 History topical ointment Irritation #0 grams Iron OTC 1 tab PO DAILY 05/07/20 12/14/23 History cholecalciferol (vitamin D3) 25 25 mcg PO DAILY 05/07/20 12/14/23 History mcg (1,000 unit) capsule folic acid 1 mg tablet 1 mg PO DAILY 05/07/20 12/14/23 History omega-3 fatty acids 1,000 mg 1,000 mg PO DAILY 05/07/20 12/14/23 History capsule (Fish Oil Concentrate) montelukast 10 mg tablet 10 mg PO DAILY 01/29/21 12/14/23 History ropinirole 0.25 mg tablet 0.25 - 0.5 mg (1 - 2 x 0.25 mg) PO 09/20/22 11/17/23 Rx TID PRN restless leg(s) #360 tabs betamethasone dipropionate 0.05 % 1 applic topical BID PRN 11/17/22 12/14/23 Rx topical cream itching/rash #45 grams rizatriptan 10 mg tablet (Maxalt) 10 mg PO ONCE PRN migraine 11/24/22 12/14/23 Rx headache #12 tabs cetirizine 10 mg tablet (Zyrtec) 20 mg PO BEDTIME 03/07/23 12/14/23 History loratadine 10 mg tablet 20 mg PO QAM 03/07/23 12/14/23 History omeprazole 40 mg capsule,delayed 40 mg PO BID #180 caps 06/05/23 12/14/23 Rx release verapamil 180 mg 24 hr 180 mg PO DAILY #90 caps 06/05/23 12/14/23 Rx capsule,extended release metoprolol succinate 50 mg 50 mg PO DAILY #90 tabs 07/13/23 12/14/23 Rx tablet,extended release 24 hr olmesartan 20 mg tablet 20 mg PO DAILY #90 tabs 07/13/23 12/14/23 Rx bupropion HCl 75 mg tablet 75 mg PO BID #180 tabs 09/07/23 12/14/23 Rx tramadol 100 mg tablet 100 mg PO Q6H 09/26/23 12/14/23 History stopass-tnnhhqwgsq-KPV-caffeine 30 1 cap PO Q6H PRN headache #90 caps 10/23/23 12/14/23 Rx mg-50 mg-325 mg-40 mg capsule (Ascomp with Codeine) alprazolam 0.25 mg tablet 0.25 mg PO TID PRN anxiety #30 tabs 11/09/23 12/14/23 Rx alendronate 70 mg tablet 70 mg PO QWEEK #12 tabs 11/17/23 12/14/23 Rx Allergies Allergy/AdvReac Type Severity Reaction Status Date / Time shellfish derived Allergy Intermediate EATING Verified 12/14/23 09:24 LARGE AMOUNTS, ITCHY Sulfa (Sulfonamide Allergy Mild HIVES/FEVER Verified 12/14/23 09:24 Antibiotics) trimethoprim Allergy Mild ANYTHING Verified 12/14/23 09:24 WITH SULFA UNSURE WITH THE INGREDIENTS sulfamethoxazole Allergy Verified 12/14/23 09:24 [From Sept] oxycodone AdvReac Severe Dry Heaves Verified 12/14/23 09:24 zolpidem [ZOLPIDEM] AdvReac Intermediate sleep Verified 12/14/23 09:24 walking Exam Const General: healthy appearing Resp Effort & Inspection: normal respiratory effort Assessment & Plan Assessment and plan (1) Tubulovillous adenoma of colon: Status: Acute Plan We discussed the risks and benefits of colonoscopy for history of tubulovillous adenoma with high-grade dysplasia and she would like to proceed.
[2023-12-14 10:15] VITALS: BP 110/75; PULSE 89; RESP 12; TEMP 36.6; O2SAT 97
--- NOTE | 2023-12-14 10:17 | PM.OP.COLON ---
Operative Date/Time/Diagnoses Date of procedure: 12/14/23 Time of procedure: 10:17 Pre-op diagnosis: History of tubulovillous adenoma with high-grade dysplasia of the sigmoid colon Post-op diagnosis: same Procedure & Clinicians Study performed: Colonoscopy Same procedure as scheduled: Yes Surgeon: Tom Castro Procedure Notes Procedure in detail: Surgeon: Tom Castro MD Anesthesia: Gabrielle Shy AGRICULTURAL TECHNICIAN Procedure: The patient was brought to the endoscopy suite, placed in left lateral decubitus position. The patient was connected to monitoring devices. A time-out was performed. Sedation was administered. Once the patient was adequately sedated, a digital rectal exam was performed and was normal. The scope was then inserted and advanced to the cecum where the appendiceal orifice was identified and photographed. The scope was then slowly withdrawn over greater than 6 minutes. The mucosa was thoroughly inspected. No trace of the prior polyp was seen. There was a very small polyp in the sigmoid colon, roughly 3 mm, removed with a cold forceps. The sigmoid colon was inspected twice. The scope was retroflexed in the rectum. No other abnormalities were seen. The scope was straightened and removed. The patient was awakened and brought to recovery. Scope withdrawal time: 17 minutes Sedation time: 26 minutes EBL: 2 mL Findings: Small polyp in the sigmoid colon, no trace of the prior polyp Post-procedure Disposition: PACU
[2023-12-14 10:20] VITALS: BP 117/53; PULSE 80; RESP 17; TEMP 36.6; O2SAT 96
[2023-12-14 10:33] VITALS: BP 115/56; PULSE 78; RESP 15; TEMP 36.5; O2SAT 98
== END 2023-12-14 10:56 | disposition home or self-care (01) ==
PROVIDERS: Family Provider Internal Medicine; PCP Internal Medicine; Referring Provider Surgery; Visit Provider Surgery
PROC: 0DJD8ZZ Inspection of Lower Intestinal Tract, Via Natural or Artificial Opening Endoscopic (ICD-10-PCS; CPT 45378; principal; 2023-12-14 09:15)
DX: Z09 Encounter for follow-up examination after completed treatment for conditions other than malignant neoplasm (principal); Z86.010 Personal history of colon polyps; D12.5 Benign neoplasm of sigmoid colon
CPT/HCPCS: 45380; J2704

== ENCOUNTER → 2024-05-10 09:30 | Outpatient (CLI) | payer MEDICARE, SELFPAY ==
[2024-05-10 10:11] LABS: Add Manual Diff / Slide Review NO; Basophils Absolute Auto 0 /uL (0-100); Basophils Percent Auto 0.3 % (0-2); Eosinophils Absolute Auto 200 /uL (0-450); Eosinophils Percent Auto 2.6 % (2-4); Hematocrit 39.7 % (36-46); Hemoglobin 13.1 g/dL (12.0-16.0); Lymphocytes Absolute Auto 1200 /uL (1100-4500); Lymphocytes Percent Auto 14.6 % (25-40); Mean Corpuscular Hemoglobin 32.6 PG (26-34); Mean Corpuscular Volume 98.6 fL (80-100); Monocytes Absolute Auto 400 /uL (0-900); Monocytes Percent Auto 4.5 % (3-14); Neutrophils Absolute Auto 6600 /uL (1500-7000); Platelet Count 266 X10^3/uL (150-400); Red Blood Cell Count 4.03 X10^6/uL (4.0-5.2); Red Cell Distribution Width 14.3 % (11.6-14.8); White Blood Cell Count 8.4 X10^3/uL (4.5-11.0)
[2024-05-10 10:41] LABS: Alanine Aminotransferase 47 IU/L (<35); Albumin 4.3 g/dL (3.5-5.0); Albumin Globulin Ratio 1.7 (1.0-2.8); Alkaline Phosphatase 78 U/L (38-126); Aspartate Aminotransferase 33 IU/L (14-36); BUN Creatinine Ratio 25.4 (6-22); Bilirubin Total 0.6 mg/dL (0.2-1.3); Blood Urea Nitrogen 18 mg/dL (7-17); Calcium 9.7 mg/dL (8.4-10.2); Carbon Dioxide 27 mmol/L (22-32); Chloride 104 mmol/L (98-107); Cholesterol 223 mg/dL (140-199); Estimated Glomerular Filt Rate > 60 mL/min (>60); Globulin 2.5 g/dL (1.7-4.1); Glucose 107 mg/dL (80-110); HDL Cholesterol 61 mg/dL (40-60); HEMOLYSIS < 15 (0-50); LDL Cholesterol Calculated 118 mg/dL (<100); Potassium 4.6 mmol/L (3.4-5.1); Sodium 136 mmol/L (137-145); Total Protein 6.8 g/dL (6.3-8.2); Triglycerides 220 mg/dL (35-150)
== END ==
PROVIDERS: Family Provider Internal Medicine; PCP Internal Medicine; Referring Provider Internal Medicine; Visit Provider Internal Medicine
DX: R13.10 Dysphagia, unspecified (principal); K21.9 Gastro-esophageal reflux disease without esophagitis; I10 Essential (primary) hypertension; D64.9 Anemia, unspecified; R05.9 Cough, unspecified
CPT/HCPCS: 36415; 80053; 80061; 85025

== ENCOUNTER → 2024-07-11 16:13 | Outpatient (CLI) | payer MEDICARE, SELFPAY ==
[2024-07-11 17:04] LABS: Influenza A - CEPHEID Flu A NEGATIVE (NEGATIVE); Influenza B - CEPHEID Flu B NEGATIVE (NEGATIVE); Respiratory Syncytial Virus Negative (Negative)
[2024-07-11 17:28] LABS: COVID-19 CEPHEID 4-PLEX PCR Negative (Negative)
== END ==
PROVIDERS: Family Provider Internal Medicine; PCP Internal Medicine; Visit Provider Nurse Practitioner Family
DX: R05.1 Acute cough (principal)
CPT/HCPCS: 0241U; 87070

== ENCOUNTER → 2024-07-11 16:23 | Outpatient (CLI) | payer MEDICARE, SELFPAY ==
--- NOTE | 2024-07-11 16:24 | DI.RAD.S_ITS ---
PROCEDURE: XR CHEST 2V INDICATIONS: Cough TECHNIQUE: 2 views of the chest were acquired. COMPARISON: [facility], CR, XR ABDOMEN 1 VIEW, 09/13/2023, 17:48. [facility], CR, XR CHEST 2V, 02/14/2023, 14:23. FINDINGS: Surgical changes and devices: Upper abdominal clips. Lungs and pleura: Lungs are clear. No pleural effusions or pneumothorax. Mediastinum: Mediastinal contours are normal. Heart size is normal. Bones and chest wall: No suspicious bony abnormalities. Soft tissues appear unremarkable. IMPRESSION: No acute cardiopulmonary abnormality is seen. Dictated by: Parviz Durham M.D. on 07/11/2024 at 17:01 Approved by: Parviz Durham M.D. on 07/11/2024 at 17:01
== END ==
PROVIDERS: Family Provider Internal Medicine; PCP Internal Medicine; Referring Provider Nurse Practitioner Family; Visit Provider Nurse Practitioner Family
DX: R05.9 Cough, unspecified (principal); R05.1 Acute cough
CPT/HCPCS: 0241U; 71046; 87070

== ENCOUNTER → 2024-11-18 09:39 | Outpatient (CLI) | payer MEDICARE, SELFPAY ==
[2024-11-18 11:51] LABS: Free T4, Direct Thyroxine 1.34 ng/dL (0.78-2.19)
[2024-11-18 12:04] LABS: Thyroid Stimulating Hormone 2.18 uIU/mL (0.47-4.68)
[2024-11-18 12:07] LABS: Carcinoembryonic Antigen 1.6 ng/mL (0.1-3.0)
== END ==
PROVIDERS: Family Provider Internal Medicine; PCP Internal Medicine; Referring Provider Internal Medicine; Visit Provider Internal Medicine
DX: C18.9 Malignant neoplasm of colon, unspecified (principal); I10 Essential (primary) hypertension; R74.01 Elevation of levels of liver transaminase levels; F43.10 Post-traumatic stress disorder, unspecified
CPT/HCPCS: 36415; 82378; 84439; 84443

== ENCOUNTER → 2025-11-07 15:10 | Outpatient (CLI) | payer MEDICARE, SELFPAY ==
[2025-11-07 16:17] LABS: Alanine Aminotransferase 31 IU/L (<35); Albumin 4.2 g/dL (3.5-5.0); Albumin Globulin Ratio 1.8 (1.0-2.8); Alkaline Phosphatase 65 U/L (38-126); Blood Urea Nitrogen 16 mg/dL (7-17); Calcium 9.5 mg/dL (8.4-10.2); Carbon Dioxide 32 mmol/L (22-32); Chloride 104 mmol/L (98-107); Estimated Glomerular Filt Rate > 60 mL/min (>60); Globulin 2.3 g/dL (1.7-4.1); Glucose 74 mg/dL (70-99); HEMOLYSIS < 15 (0-50); Potassium 4.5 mmol/L (3.4-5.1); Total Protein 6.5 g/dL (6.3-8.2)
[2025-11-07 16:29] LABS: Sodium 139 mmol/L (137-145)
== END ==
PROVIDERS: Family Provider Internal Medicine; PCP Internal Medicine; Referring Provider Internal Medicine; Visit Provider Internal Medicine
DX: I10 Essential (primary) hypertension (principal)
CPT/HCPCS: 36415; 80053